=== PATIENT | female | born 1975 | race American Indian/Alaskan Native ===

== ENCOUNTER 2016-09-11 06:20 | Day surgery (SDC) | payer MEDICARE ==
[~2016-09-11 06:20] MED LIST: NACL 0.9% 1000 ML 1,000 ML IV SCH; VANCOMYCIN/NS 1 GM/250 ML 250 ML IV NR
[2016-09-11] MEDS ORDERED: HEPARIN/NS 5000 UNIT/500ML(CATH LAB) 1,000 ML IR ONE (08:16)
[2016-09-11] MEDS ORDERED: XYLOCAINE 2% INFILTRATI ONE (08:16)
[2016-09-11] MEDS ORDERED: HEPARIN 10,000 UNITS/10 ML ONE (08:16)
[2016-09-11] MEDS ORDERED: SUBLIMAZE ONE (08:16)
[2016-09-11] MEDS ORDERED: NACL 0.9% 250ML 0 ML ONE (08:17)
[2016-09-11] MEDS: VERSED ONE ×2 (08:48→08:55)
[2016-09-11] MEDS ORDERED: BENADRYL ONE (08:49)
--- NOTE | 2016-09-11 09:43 | Operative Report ---
Operative Report Operative Report: Date of Procedure: 09/11/2016 Pre-operative Diagnosis: Complications of Dialysis Access Post-operative Diagnosis: Same Procedure(s): 1. Access Left Thigh AV Fistula With 7 [place] Sheath and Venous 2. Left Thigh Fistulogram 3. Angioplasty of Left Thigh AV Fistula with8 x 20 Cutting Balloon And 8 x 80 Balloon 4. Radiologic Supervision with Interpretation Surgeon: Roosevelt Fisher M.D. Secretary Book Keeper: None Anesthesia: Local and IV sedation EBL: Minimal Counts: Correct Complications: None Condition: Stable Findings: Approximately 85% narrowing of a long segment of the fistula at the venous outflow reduced to less than 10% stenosis after intervention. The arterial inflow was widely patent. Specimen: None Indication: The patient is a 41-year-old female with a history of end-stage renal disease currently on hemodialysis through a left thigh AV fistula. She states that she has had difficulty with dialysis secondary to pain and high venous pressures. She was set up for a fistulogram with possible intervention. She was given the risks, benefits, and alternative procedures and consented to the procedure. Description of Procedure: The patient was brought to the tender labor and laid in supine position. After he was adequately sedated her left thigh was prepped and draped in normal sterile fashion. After anesthetizing the skin micropuncture technique was used to access the fistula toward the venous outflow and a 7 [place] sheath was placed by Seldinger technique. A fistulogram was performed with the previously described findings. A 7 x 120 balloon was initially used however there was significant residual stenosis so I decided to upsize to an 8 x 80 a semi- compliant balloon. After angioplasty there was still greater than 50% residual stenosis decided to treat those areas with an 8 x 20 Cutting Balloon. After treating those significantly stenosed areas with the Cutting Balloon was less than 10% residual stenosis. During the balloon inflations contrast was refluxed back into the arterial anastomosis which was widely patent. At this point all balloons and wires were removed for chromic in pursestring fashion was used to close entry site. The patient tolerated the procedure well. All sponge, needle, and estimate counts were correct. The patient was taken to the recovery area in stable condition.
--- NOTE | 2016-09-11 09:46 | Short Stay Summary ---
Short Stay Documentation Date of service: 09/11/16 - History H&P: obtained from office - Allergies and Medications Current Medications: Allergies acetaminophen [From Percocet] Allergy (Verified 06/20/15 11:08) Hives hydromorphone HCl [From Dilaudid] Allergy (Verified 06/20/15 11:08) Hives nifedipine [From Procardia] Allergy (Verified 06/20/15 11:08) Hives oxycodone HCl [From Percocet] Allergy (Verified 06/20/15 11:08) Hives Penicillins Allergy (Verified 06/20/15 11:08) Hives Sulfa (Sulfonamide Antibiotics) Allergy (Verified 06/20/15 11:08) Hives mayonnaise Allergy (Uncoded 06/20/15 11:08) Unknown Home Medications Medication Instructions Recorded Confirmed Last Taken Type Vitamin B Comp and C/FA/Zn Cit 1 tab PO DAILY 08/07/15 09/11/16 09/08/16 History [Dialyvite 800-Zinc 50 mg Tab] 1 Calcitriol [Rocaltrol] 0.5 mg PO BID #60 capsule 10/06/15 Unknown Rx Cyclobenzaprine [Flexeril 10 MG 10 mg PO TID PRN #90 tablet 10/06/15 09/11/16 Rx TAB] 10mg Ondansetron [Zofran Odt] 4 mg PO Q8H PRN #10 tab.rapdis 10/06/15 09/11/16 Rx 4mg Tizanidine HCl [Zanaflex] 4 mg PO QHS #30 capsule 10/06/15 09/11/16 09/09/16 Rx 4mg Zolpidem [Ambien] 10 mg PO QHS PRN #30 tablet 10/06/15 09/11/16 09/09/16 Rx 10mg predniSONE [Deltasone] 20 mg PO QDAY #30 tablet 10/06/15 09/11/16 09/10/16 Rx 20mg ALPRAZolam [Xanax TAB] 1 mg PO DAILY PRN 09/11/16 09/11/16 09/10/16 History 1mg Cinacalcet [Sensipar] 90 mg PO QDAY 01/13/17 01/13/17 01/12/17 History 90mg Active Medications Vancomycin HCl (Vancomycin/Ns 1 Gm/250 Ml) 250 mls @ 167 mls/hr IV PREOP NR PRN Reason: Protocol Stop: 09/11/16 23:00 Last Admin: 09/11/16 08:18 Dose: 167 mls/hr - Brief post op/procedure progress note Date of procedure: 09/11/16 Pre-op diagnosis: Complications of Dialysis Access Post-op diagnosis: same Procedure: 1. Access Left Thigh AV Fistula With 7 [place] Sheath and Venous 2. Left Thigh Fistulogram 3. Angioplasty of Left Thigh AV Fistula with8 x 20 Cutting Balloon And 8 x 80 Balloon 4. Radiologic Supervision with Interpretation Anesthesia: local, other (IV sedation) Surgeon: CAMI SMITH Estimated blood loss: minimal Pathology: none Condition: stable - Disposition Condition at discharge: Good Disposition: DISCHARGED TO HOME OR SELFCARE Short Stay Discharge Plan Activity: no restrictions Wound: open to air, keep clean and dry
[2016-09-11] MEDS ORDERED: NORCO 5/325 ONE (09:57)
[2016-09-11] MEDS ORDERED: NORCO 5/325 PO PRN (10:00)
[2016-09-11] MEDS ORDERED: FLUSH HEPARIN IV ONE (10:08)
[2016-09-11 11:03] VITALS: BP 157/86
== END 2016-09-11 11:15 | disposition home or self-care (01) ==
LOC: OPU 06:20
PROVIDERS: ATTEND Surgery Vascular Surgery
DX: T82.858A Stenosis of other vascular prosthetic devices, implants and grafts, initial encounter (principal); N18.6 End stage renal disease; F41.9 Anxiety disorder, unspecified; Z99.2 Dependence on renal dialysis; Z80.9 Family history of malignant neoplasm, unspecified; Z83.3 Family history of diabetes mellitus; Z82.49 Family history of ischemic heart disease and other diseases of the circulatory system; Y83.2 Surgical operation with anastomosis, bypass or graft as the cause of abnormal reaction of the patient, or of later complication, without mention of misadventure at the time of the procedure
CPT/HCPCS: 36415; 36902; 84132; 96365; C1725; C1769; C1894; J1200; J1642; J1644; J2250; J3010; J3370; J7050; Q9967

== ENCOUNTER 2017-01-25 13:58 | Inpatient (IN) | payer MEDICARE ==
--- NOTE | 2017-01-25 14:49 | XRay Report ---
ROUTINE CHEST, TWO VIEWS: HISTORY: Shortness of breath. Cardiomegaly, pulmonary venous congestion and small bilateral pleural effusions have developed since 10/05/15. No consolidation or pneumothorax. Right [id number] is unchanged terminating in the right ventricle. IMPRESSION: CHF.
[2017-01-25] MEDS ORDERED: NITROSTAT SL PRN (15:55)
--- NOTE | 2017-01-25 16:59 | Emergency Department Report ---
ED General Adult HPI - General Chief complaint: Dyspnea/Respdistress Stated complaint: SOB Time Seen by Provider: 01/25/17 14:40 Source: patient, RN notes reviewed, old records reviewed Mode of arrival: Ambulatory Limitations: No Limitations - History of Present Illness Initial comments: This is a 41-year-old female. She is previously unknown to me. Her medical assistant dermatology is Dr. Ko. Patient has a past medical history of end-stage renal disease, on dialysis Wednesday, , Wednesday. patient was not not dialyzed this past Wednesday. Patient reports given dialysis on . Also has a past medical history of hypertension and lupus. The patient reports that she is not . Impression presents to the ER with shortness of breath and chest pain. The shortness of breath is constant. It worsens when she lays flat. It worsens when she has physical exertion. The chest pain is central and radiates to the left upper extremity. There is no leg pain. There is no leg swelling. No recent trips greater than 4 hours. No recent hospital admissions. The patient was found to have faint crackles on physical examination, with a chest x-ray that suggested congestive heart failure. The patient's private medical assistant dermatology Dr. Ko was contacted, who agreed to arrange dialysis. Of note, there was delay in disposition because the patient was refusing IV peripheral blood draws, and it took a long time to access her port to obtain laboratory studies. -: Gradual Location: chest, left, upper extremity Quality: aching Consistency: intermittent Improves with: rest Worsens with: movement Associated Symptoms: chest pain, loss of appetite, shortness of breath, weakness - Related Data Home Medications Medication Instructions Recorded Confirmed Last Taken Vitamin B Comp and C/FA/Zn Cit 1 tab PO DAILY 08/07/15 09/11/16 09/08/16 [Dialyvite 800-Zinc 50 mg Tab] 1 ALPRAZolam [Xanax TAB] 1 mg PO DAILY PRN 09/11/16 09/11/16 09/10/16 1mg Cinacalcet [Sensipar] 90 mg PO QDAY 09/11/16 09/11/16 09/10/16 90mg Previous Rx's Medication Instructions Recorded Last Taken Type Calcitriol [Rocaltrol] 0.5 mg PO BID #60 capsule 10/06/15 Unknown Rx Cyclobenzaprine [Flexeril 10 MG 10 mg PO TID PRN #90 tablet 10/06/15 09/09/16 Rx TAB] 10mg Ondansetron [Zofran Odt] 4 mg PO Q8H PRN #10 tab.rapdis 10/06/15 09/09/16 Rx 4mg Tizanidine HCl [Zanaflex] 4 mg PO QHS #30 capsule 10/06/15 09/09/16 Rx 4mg Zolpidem [Ambien] 10 mg PO QHS PRN #30 tablet 10/06/15 09/09/16 Rx 10mg predniSONE [Deltasone] 20 mg PO QDAY #30 tablet 10/06/15 09/10/16 Rx 20mg Allergies Allergy/AdvReac Type Severity Reaction Status Date / Time acetaminophen [From Percocet] Allergy Hives Verified 06/20/15 11:08 hydromorphone HCl Allergy Hives Verified 06/20/15 11:08 [From Dilaudid] nifedipine [From Procardia] Allergy Hives Verified 06/20/15 11:08 oxycodone HCl [From Percocet] Allergy Hives Verified 06/20/15 11:08 Penicillins Allergy Hives Verified 06/20/15 11:08 Sulfa (Sulfonamide Allergy Hives Verified 06/20/15 11:08 Antibiotics) mayonnaise Allergy Unknown Uncoded 06/20/15 11:08 ED Review of Systems ROS: Stated complaint: SOB Other details as noted in HPI Constitutional: malaise. 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 - Surgical History Past Surgical History?: Yes Additional Surgical History: shunts, ports csection x 2 - Social History Smoking Status: Never Smoker Substance Use Type: Prescribed - Medications Home Medications: Home Medications Medication Instructions Recorded Confirmed Last Taken Type Vitamin B Comp and C/FA/Zn Cit 1 tab PO DAILY 08/07/15 09/11/16 09/08/16 History [Dialyvite 800-Zinc 50 mg Tab] 1 Calcitriol [Rocaltrol] 0.5 mg PO BID #60 capsule 10/06/15 Unknown Rx Cyclobenzaprine [Flexeril 10 MG 10 mg PO TID PRN #90 tablet 10/06/15 09/11/16 Rx TAB] 10mg Ondansetron [Zofran Odt] 4 mg PO Q8H PRN #10 tab.rapdis 10/06/15 09/11/16 Rx 4mg Tizanidine HCl [Zanaflex] 4 mg PO QHS #30 capsule 10/06/15 09/11/16 09/09/16 Rx 4mg Zolpidem [Ambien] 10 mg PO QHS PRN #30 tablet 10/06/15 09/11/16 09/09/16 Rx 10mg predniSONE [Deltasone] 20 mg PO QDAY #30 tablet 10/06/15 09/11/16 09/10/16 Rx 20mg ALPRAZolam [Xanax TAB] 1 mg PO DAILY PRN 09/11/16 09/11/16 09/10/16 History 1mg Cinacalcet [Sensipar] 90 mg PO QDAY 09/11/16 09/11/16 09/10/16 History 90mg ED Physical Exam - General Limitations: No Limitations General appearance: alert, in no apparent distress - Head Head exam: Present: atraumatic, normocephalic - Eye Eye exam: Present: normal appearance, EOMI. Absent: nystagmus - ENT ENT exam: Present: normal exam, normal orophraynx, mucous membranes moist, normal external ear exam - Neck Neck exam: Present: normal inspection, full ROM. Absent: tenderness, meningismus - Respiratory Respiratory exam: Present: rhonchi - Cardiovascular Cardiovascular Exam: Present: normal rhythm, tachycardia, normal heart sounds. Absent: systolic murmur, diastolic murmur, rubs, gallop - GI/Abdominal GI/Abdominal exam: Present: soft, normal bowel sounds. Absent: distended, tenderness, guarding, rebound, rigid, pulsatile mass - Extremities Exam Extremities exam: Present: normal inspection, full ROM, normal capillary refill , other (there is a left lower extremity graft, appropriate thrill. No redness , pus or streaking noted.). Absent: pedal edema, joint swelling, calf tenderness - Back Exam Back exam: Present: normal inspection, full ROM. Absent: tenderness, CVA tenderness (R), CVA tenderness (L), muscle spasm, paraspinal tenderness, vertebral tenderness - Neurological Exam Neurological exam: Present: alert, oriented X3, normal gait, other (Extraocular movements intact. Tongue midline. No facial droop. Facial sensation intact to light touch in the V1, V2, V3 distribution bilaterally. 5 and 5 strength in 4 extremities.. Sensation is intact to light touch in 4 extremities.). Absent : motor sensory deficit - Psychiatric Psychiatric exam: Present: normal affect, normal mood - Skin Skin exam: Present: warm, dry, intact, normal color. Absent: rash ED Course Vital Signs 01/25/17 01/25/17 01/25/17 14:07 17:16 17:54 Temperature 98.2 F Pulse Rate 108 H 86 Respiratory 22 Rate Blood Pressure 189/113 Blood Pressure [Right] O2 Sat by Pulse 100 98 Oximetry 01/25/17 17:58 Temperature 98 F Pulse Rate 97 H Respiratory 22 Rate Blood Pressure Blood Pressure 159/92 [Right] O2 Sat by Pulse 98 Oximetry - Reevaluation(s) Reevaluation #1: 01/25/17 17:52 Dr Shanks accepts patient ED Medical Decision Making - Lab Data Result diagrams: 01/25/17 17:14 01/25/17 16:45 Vital Signs 01/25/17 14:07 Temperature 98.2 F Pulse Rate 108 H Respiratory 22 Rate Blood Pressure 189/113 O2 Sat by Pulse 100 Oximetry - EKG Data 01/25/17 16:58 sinus tachycardia, 105 bpm, QTC 481 ms, poor R wave progression noted, nonspecific T-wave abnormality, not morphologically consistent with STEMI , appears unchanged when compared to prior EKG from 2016. - Radiology Data Radiology results: report reviewed, image reviewed X-ray of the chest demonstrates cardiomegaly, congestive heart failure, pleural effusions - Medical Decision Making Differential diagnosis: Acute coronary syndrome, congestive heart failure, fluid overload, ACS Assessment and plan: 41-year-old female with chest pain, shortness of breath, x- ray of the chest demonstrating CHF, most likely CHF, requiring urgent dialysis. I doubt pulmonary embolus, patient does not have any classic risk factors, with the exception of lupus, however I find to be low risk by well's criteria. Critical care attestation.: If time is entered above; I have spent that time in minutes in the direct care of this critically ill patient, excluding procedure time. ED Disposition Clinical Impression: End stage renal failure on dialysis, Chest pain at rest Disposition: OP ADMITTED IP TO THIS HOSP Is pt being admited?: Yes Does the pt Need Aspirin: Yes Condition: Good Instructions: Chest Pain (ED) Referrals: PRIMARY CARE, [Primary Care Provider] - 3-5 Days
[2017-01-25 17:21] LABS: Anion Gap 25 mmol/L; Blood Urea Nitrogen 32 mg/dL (7-17); Calcium 8.5 mg/dL (8.4-10.2); Carbon Dioxide 21 mmol/L (22-30); Chloride 94.8 mmol/L (98-107); Glucose 98 mg/dL (65-100); Potassium 3.8 mmol/L (3.6-5.0); Sodium 137 mmol/L (137-145)
[2017-01-25 17:29] LABS: Hematocrit 26.9 % (30.3-42.9); Hemoglobin 8.5 gm/dl (10.1-14.3); Mean Corpuscular HGB Conc 32 % (30-34); Mean Corpuscular Hemoglobin 29 pg (28-32); Mean Corpuscular Volume 92 fl (79-97); Red Blood Count 2.92 M/mm3 (3.65-5.03); White Blood Count 3.9 K/mm3 (4.5-11.0)
[2017-01-25 17:35] LABS: INR 1.11 (0.87-1.13)
[2017-01-25 17:39] LABS: Cholesterol 102 mg/dL (50-199); HDL Cholesterol 40 mg/dL (40-59); LDL Cholesterol,Direct 42 mg/dL (50-130); Triglycerides 103 mg/dL (2-149)
[2017-01-25] MEDS ORDERED: NACL 0.9% 100 ML IV PRN (18:06)
--- NOTE | 2017-01-25 18:06 | Event Note ---
I was called in by the ER physician for a patient presenting with shortness of breath elevated proBNP Patient missed her dialysis treatment She is clinically stable otherwise Will order for dialysis
--- NOTE | 2017-01-25 18:15 | Admit Criteria Form ---
Admission Criteria Documentation: RENAL FAILURE, CHRONIC Clinical Indications for Admission to Inpatient Care (Place 'X' for any and all applicable criteria): Admission is indicated for ANY ONE of the following (1)(2)(3)(4)(5): [X ]I. Inpatient admission required rather than observation care (Use Renal Failure, Chronic: Observation Care Criteria as appropriate) because of ANY ONE of the following: [ ]a) Volume overload or uremic symptoms (eg, clinically significant pulmonary edema, hypertension, pericarditis, acidosis) too severe for, or not responsive (eg, for over 24 hours) to emergency department or observation care dialysis or treatment regimen (11) [ ]b) Hemodynamic instability that is severe or persistent [X ]c) Respiratory distress that is severe or persistent (11) [ ]d) Clinically significant electrolyte abnormality that requires inpatient care (eg,hyperkalemia with severe ECG findings)[B] [ ]e) Supplement O2 or respiratory therapy for over 24hrs that is performable only in acute inpatient setting [ ]f) Continuous IV infusion of anticoagulation, platelet inhibitor, vasoactive, or Antiarrhythmic medication (15), [ ]g) Pulmonary artery catheter monitoring [ ]h) Temporary pacemaker placement [ ]i) Emergent pericardiocentesis [X ]j) Other condition, treatment or monitoring requiring inpatient admission [ ]II. Unexplained syncope [A] [ ]III. Recurrent seizures [ ]IV. Severe infections not treatable in outpatient setting (eg, peritonitis)(9 ) [ ]V. Cardiac arrhythmias of immediate concern [ ]. Encephalopathy [ ]VII.Bleeding abnormalities (eg, platelet dysfunction) with active (eg, gastrointestinal) bleeding Extended stay beyond goal length of stay may be needed for (3)(4)(35)(36): [ ]a) Continuing uremic complications [ ]b) Comorbidities or complications The original [employer] content created by [employer] has been revised. The portions of the content which have been revised are identified through the use of italic text or in bold, and [facility] has neither reviewed nor approved the modified material. All other unmodified content is copyright [employer]. Please see references footnoted in the original [facility] edition 2016 Admission Criteria Met: Yes
--- NOTE | 2017-01-25 18:30 | History and Physical Report ---
History of Present Illness Date of examination: 01/25/17 Chief complaint: SOB History of present illness: 41-year-old -[place] female with past medical history significant for lupus, ESRD on hemodialysis, CHF, hypertension presented to the emergency department complaining of shortness of breath for the last 1 week. Patient said her dialysis was on Wednesday and after dialysis she gained 1 pound. Patient has shortness of breath at rest. Patient is complaining left substernal chest pain for the last 2 days, 10 out of 10 in intensity, sharp, with radiation to the left arm, associated with diaphoresis, no alleviating factor, worsened with exertion. Patient has previous history of LA. Vision is also complaining back pain, multiple joint pain which attributed to lupus. REVIEW OF SYSTEMS: GENERAL: no weight change, no fatigue, no fever HEAD: no head ache EYES: no blurry vision, no acute visual loss EARS: no hearing loss, no discharge, no earache NOSE: no stuffiness, no sneezing, no discharge MOUTH, THROAT AND NECK: no bleeding gums, no sore throat, no swollen neck CARDIAC: no palpitations, + dyspnea on exertion, + orthopnea, + PND, no edema, + chest pain RESPIRATORY: + shortness of breath, no wheeze, + cough, no sputum, no hemoptysis , no asthma GI: no decreased appetite, no nausea, no vomiting, no dysphagia, no diarrhea, no constipation, no abdominal pain URINARY: no change in frequency, no urgency, no polyuria, no hematuria, no incontinence MUSCULOSKELETAL: no muscle weakness, + multiple pain, no joint stiffness NEUROLOGIC: no loss of sensation/numbness, no tingling, no tremors, no weakness/ paralysis HEMATOLOGIC: no anemia, no easy bruising SKIN: no rashes ENDOCRINE: no heat/cold intolerance, no polyuria, no polydipsia, no thyroid problems. PSYCHIATRIC: no anxiety, no depression, no suicidal ideations. Past History Past Medical History: arthritis, CAD, dialysis, heart failure, renal failure, other (SLE) Past Surgical History: , Other (port cath, PD catheter) Social history: full code. denies: smoking, alcohol abuse, prescription drug abuse, IV drug use Family history: CAD, hypertension Medications and Allergies Allergies Allergy/AdvReac Type Severity Reaction Status Date / Time acetaminophen [From Percocet] Allergy Hives Verified 06/20/15 11:08 hydromorphone HCl Allergy Hives Verified 06/20/15 11:08 [From Dilaudid] nifedipine [From Procardia] Allergy Hives Verified 06/20/15 11:08 oxycodone HCl [From Percocet] Allergy Hives Verified 06/20/15 11:08 Penicillins Allergy Hives Verified 06/20/15 11:08 Sulfa (Sulfonamide Allergy Hives Verified 06/20/15 11:08 Antibiotics) mayonnaise Allergy Unknown Uncoded 06/20/15 11:08 Home Medications Medication Instructions Recorded Confirmed Last Taken Type Vitamin B Comp and C/FA/Zn Cit 1 tab PO DAILY 08/07/15 09/11/16 09/08/16 History [Dialyvite 800-Zinc 50 mg Tab] 1 Calcitriol [Rocaltrol] 0.5 mg PO BID #60 capsule 10/06/15 Unknown Rx Cyclobenzaprine [Flexeril 10 MG 10 mg PO TID PRN #90 tablet 10/06/15 09/11/16 Rx TAB] 10mg Ondansetron [Zofran Odt] 4 mg PO Q8H PRN #10 tab.rapdis 10/06/15 09/11/16 Rx 4mg Tizanidine HCl [Zanaflex] 4 mg PO QHS #30 capsule 10/06/15 09/11/16 09/09/16 Rx 4mg Zolpidem [Ambien] 10 mg PO QHS PRN #30 tablet 10/06/15 09/11/16 09/09/16 Rx 10mg predniSONE [Deltasone] 20 mg PO QDAY #30 tablet 10/06/15 09/11/16 09/10/16 Rx 20mg ALPRAZolam [Xanax TAB] 1 mg PO DAILY PRN 09/11/16 09/11/16 09/10/16 History 1mg Cinacalcet [Sensipar] 90 mg PO QDAY 09/11/16 09/11/16 09/10/16 History 90mg Active Meds: Active Medications Sodium Chloride (Nacl 0.9%) 100 mls @ 999 mls/hr IV ARTUR PRN PRN Reason: Hypotension Nitroglycerin (Nitrostat) 0.4 mg SL .Q5MIN PRN PRN Reason: Chest Pain Last Admin: 01/25/17 17:16 Dose: 0.4 mg Exam - Physical Exam Narrative exam: Not in cardiopulmonary distress. The patient appeared well nourished and normally developed. Vital signs as documented. Head exam is unremarkable. No scleral icterus . Neck is without jugular venous distension, thyromegaly, or carotid bruits. Lungs Basilan rales. Cardiac exam reveals regular rate and Rhythm. First and second heart sounds normal. No murmurs, rubs or gallops. Abdominal exam reveals normal bowel sounds, no masses, no organomegaly and no aortic enlargement. Extremities are nonedematous and both femoral and pedal pulses are normal. SCENIC ARTIST: Alert and oriented 3. No focal weakness. - Constitutional Vitals: Temp Pulse Resp BP Pulse Ox 98 F 97 H 22 159/92 98 01/25/17 17:58 01/25/17 17:58 01/25/17 17:58 01/25/17 17:58 01/25/17 17:58 Results - Labs CBC & Chem 7: 01/25/17 17:14 01/25/17 16:45 Labs: Laboratory Last Values WBC 3.9 K/mm3 (4.5-11.0) L 01/25/17 17:14 RBC 2.92 M/mm3 (3.65-5.03) L 01/25/17 17:14 Hgb 8.5 gm/dl (10.1-14.3) L 01/25/17 17:14 Hct 26.9 % (30.3-42.9) L 01/25/17 17:14 MCV 92 fl (79-97) 01/25/17 17:14 MCH 29 pg (28-32) 01/25/17 17:14 MCHC 32 % (30-34) 01/25/17 17:14 RDW 17.0 % (13.2-15.2) H 01/25/17 17:14 Seg Neutrophils % Loan Processing Supervisor 01/25/17 17:14 PT 14.2 Sec. (12.2-14.9) 01/25/17 17:14 INR 1.11 (0.87-1.13) 01/25/17 17:14 Sodium 137 mmol/L (137-145) 01/25/17 16:45 Potassium 3.8 mmol/L (3.6-5.0) 01/25/17 16:45 Chloride 94.8 mmol/L (98-107) L 01/25/17 16:45 Carbon Dioxide 21 mmol/L (22-30) L 01/25/17 16:45 Anion Gap 25 mmol/L 01/25/17 16:45 BUN 32 mg/dL (7-17) H 01/25/17 16:45 Creatinine 10.3 mg/dL (0.7-1.2) H 01/25/17 16:45 Estimated GFR 5 ml/min 01/25/17 16:45 BUN/Creatinine Ratio 3.10 % 01/25/17 16:45 Glucose 98 mg/dL (65-100) 01/25/17 16:45 Calcium 8.5 mg/dL (8.4-10.2) 01/25/17 16:45 Troponin T 0.083 ng/mL (0.00-0.029) H 01/25/17 16:45 NT-Pro-B Natriuret Pep > 42604 pg/mL (0-450) H 01/25/17 16:45 Triglycerides 103 mg/dL (2-149) 01/25/17 16:45 Cholesterol 102 mg/dL (50-199) 01/25/17 16:45 LDL Cholesterol Direct 42 mg/dL (50-130) L 01/25/17 16:45 HDL Cholesterol 40 mg/dL (40-59) 01/25/17 16:45 Cholesterol/HDL Ratio 2.55 % 01/25/17 16:45 HCG, Quant < 2 mIU/mL (0-4) 01/25/17 16:45 - Imaging and Cardiology EKG: image reviewed (t-wave inversion in leads 1 and AVF) Chest x-ray: image reviewed (pulmonary congestion suggestive of CHF) Assessment and Plan Assessment and plan: Fluid overload secondary to CHF exacerbation/ESRD - Emergent hemodialysis to be done - Nephrology consulted - Echo Chest pain - Troponin is elevated in the setting of ESRD - Serial EKGs and cardiac enzymes - T wave inversion in leads 1 and aVF, we'll consult cardiology Hypertensive urgency - Hydralazine - We will monitor after HD SLE - continue with prednsolne DVT prophylaxis - heparin Disposition - Admit to telemetry Advance Directives: Yes VTE prophylaxis?: Chemical Plan of care discussed with patient/family: Yes
[2017-01-25] MEDS ORDERED: SODIUM CHLORIDE FLUSH SYRINGE 10 ML IV PRN (18:32)
[2017-01-25] MEDS ORDERED: APRESOLINE IV ONE (18:32)
[2017-01-25] MEDS ORDERED: XANAX PO PRN (18:34)
[2017-01-25] MEDS ORDERED: ZOFRAN ODT PO PRN (18:34)
[2017-01-25] MEDS ORDERED: AMBIEN PO PRN (18:34)
[2017-01-25] MEDS ORDERED: FLEXERIL PO PRN (18:34)
[2017-01-25 19:48] LABS: Basophils % (Manual) 0 % (0.0-1.8); Blastocytes % (Manual) 0 %
[2017-01-25 19:49] LABS: Anisocytosis 1+; Elliptocytes Few
[2017-01-25 19:50] LABS: Acanthocytes Rare; Diff Status Complete; Platelet Estimate Appears Decreased
[2017-01-25 19:55] LABS: Platelet Count 76 K/mm3 (140-440)
[2017-01-25] MEDS ORDERED: NACL 0.9 (PRIMING MACHINE ONLY DIALYSIS) MC ONE (21:09)
[2017-01-25] MEDS: MORPHINE IV PRN (21:13)
[2017-01-25] MEDS: BENADRYL IV SCH (21:14)
[2017-01-25] MEDS ORDERED: ZANAFLEX PO PRN (22:00)
[2017-01-25] MEDS ORDERED: ROCALTROL PO SCH (22:00)
[2017-01-25] MEDS: PEPCID PO SCH (23:42)
[2017-01-25] MEDS: APRESOLINE PO SCH (23:42)
[2017-01-25] MEDS: HEPARIN SUB-Q SCH (23:43)
[2017-01-25] MEDS: COLACE PO SCH (23:43)
[2017-01-25] MEDS: DELTASONE PO SCH (23:43)
[2017-01-26] MEDS: MORPHINE IV PRN ×3 (00:53→21:26)
[2017-01-26] MEDS: BENADRYL IV SCH ×4 (00:54→21:25)
[2017-01-26 01:31] LABS: Creatine Kinase MB 1.5 ng/mL (0.0-4.0)
[2017-01-26] MEDS: APRESOLINE PO SCH ×3 (05:20→21:25)
[2017-01-26] MEDS: HEPARIN SUB-Q SCH ×3 (05:21→21:34)
[2017-01-26] MEDS: DELTASONE PO SCH (09:39)
[2017-01-26] MEDS: SENSIPAR PO SCH (09:39)
[2017-01-26] MEDS: ROCALTROL PO SCH ×3 (09:39→21:27)
[2017-01-26] MEDS: COLACE PO SCH ×2 (09:39→21:25)
[2017-01-26] MEDS: BABY ASPIRIN PO SCH (09:39)
[2017-01-26] MEDS: PEPCID PO SCH ×2 (09:39→21:25)
[2017-01-26] MEDS ORDERED: ROBITUSSIN DM PO PRN (11:30)
[2017-01-26] MEDS: PHOSLO PO SCH ×2 (12:18→18:17)
--- NOTE | 2017-01-26 13:04 | Consultation ---
History of Present Illness Consult date: 01/26/17 Consult reason: chest pain History of present illness: This is a 41yr old patient with end stage renal disease, systemic lupus, hypertension who presented with complaints of chest pain and shortness of breath. Chest x-ray reports cardiomegaly with pulmonary venous congestion. Patient denies missed dialysis. Latest cardiac workup done 2 years ago shows a normal myocardial perfusion thallium stress test, EF 60%. ECG shows a sinus rhythm with nonspecific twave abnormalities. Past History Past Medical History: dialysis, ESRD, renal failure, other (SLE) Social history: full code. denies: smoking, alcohol abuse, prescription drug abuse, IV drug use Family history: CAD, hypertension Medications and Allergies Allergies Allergy/AdvReac Type Severity Reaction Status Date / Time acetaminophen [From Percocet] Allergy Hives Verified 06/20/15 11:08 hydromorphone HCl Allergy Hives Verified 06/20/15 11:08 [From Dilaudid] nifedipine [From Procardia] Allergy Hives Verified 06/20/15 11:08 oxycodone HCl [From Percocet] Allergy Hives Verified 06/20/15 11:08 Penicillins Allergy Hives Verified 06/20/15 11:08 Sulfa (Sulfonamide Allergy Hives Verified 06/20/15 11:08 Antibiotics) mayonnaise Allergy Unknown Uncoded 06/20/15 11:08 Home Medications Medication Instructions Recorded Confirmed Last Taken Type Vitamin B Comp and C/FA/Zn Cit 1 tab PO DAILY 08/07/15 01/26/17 1 Day Ago History [Dialyvite 800-Zinc 50 mg Tab] Calcitriol [Rocaltrol] 0.5 mg PO BID #60 capsule 10/06/15 01/26/17 1 Day Ago Rx Cyclobenzaprine [Flexeril 10 MG 10 mg PO TID PRN #90 tablet 10/06/15 01/26/17 1 Day Ago Rx TAB] Ondansetron [Zofran Odt] 4 mg PO Q8H PRN #10 tab.rapdis 10/06/15 01/26/17 1 Day Ago Rx Tizanidine HCl [Zanaflex] 4 mg PO QHS #30 capsule 10/06/15 01/26/17 1 Day Ago Rx Zolpidem [Ambien] 10 mg PO QHS PRN #30 tablet 10/06/15 01/26/17 1 Day Ago Rx predniSONE [Deltasone] 20 mg PO QDAY #30 tablet 10/06/15 01/26/17 1 Day Ago Rx ALPRAZolam [Xanax TAB] 1 mg PO DAILY PRN 09/11/16 01/26/17 1 Day Ago History Cinacalcet [Sensipar] 90 mg PO QDAY 09/11/16 01/26/17 1 Day Ago History Active Meds: Active Medications Alprazolam (Xanax) 1 mg PO DAILY PRN PRN Reason: Anxiety Aspirin (Baby Aspirin) 81 mg PO QDAY [facility] Last Admin: 01/26/17 09:39 Dose: 81 mg Calcitriol (Rocaltrol) 0.5 mcg PO BID [facility] Last Admin: 01/26/17 09:42 Dose: Not Given Calcium Acetate (Phoslo) 667 mg PO TIDWM [facility] Last Admin: 01/26/17 12:18 Dose: 667 mg Cinacalcet (Sensipar) 90 mg PO QDAY [facility] Last Admin: 01/26/17 09:39 Dose: 90 mg Cyclobenzaprine HCl (Flexeril) 10 mg PO TID PRN PRN Reason: Muscle Spasm Diphenhydramine HCl (Benadryl) 25 mg IV Q6H [facility] Last Admin: 01/26/17 12:20 Dose: 25 mg Docusate Sodium (Colace) 100 mg PO BID [facility] Last Admin: 01/26/17 09:39 Dose: 100 mg Famotidine (Pepcid) 20 mg PO BID [facility] Last Admin: 01/26/17 09:39 Dose: 20 mg Guaifenesin (Robitussin Dm) 10 ml PO Q4H PRN PRN Reason: Cough Heparin Sodium (Porcine) (Heparin) 5,000 unit SUB-Q Q8HR [facility] Last Admin: 01/26/17 05:21 Dose: Not Given Hydralazine HCl (Apresoline) 50 mg PO Q8HR [facility] Last Admin: 01/26/17 05:20 Dose: 50 mg Sodium Chloride (Nacl 0.9%) 100 mls @ 999 mls/hr IV ARTUR PRN PRN Reason: Hypotension Morphine Sulfate (Morphine) 2 mg IV Q4H PRN PRN Reason: Pain, Moderate (4-6) Last Admin: 01/26/17 12:20 Dose: 2 mg Nitroglycerin (Nitrostat) 0.4 mg SL .Q5MIN PRN PRN Reason: Chest Pain Last Admin: 01/25/17 17:16 Dose: 0.4 mg Ondansetron HCl (Zofran Odt) 4 mg PO Q8H PRN PRN Reason: Nausea Prednisone (Deltasone) 20 mg PO QDAY [facility] Last Admin: 01/26/17 09:39 Dose: 20 mg Sodium Chloride (Sodium Chloride Flush Syringe 10 Ml) 10 ml IV PRN PRN PRN Reason: LINE FLUSH Tizanidine HCl (Zanaflex) 4 mg PO HS PRN PRN Reason: Muscle Spasm Zolpidem Tartrate (Ambien) 10 mg PO QHS PRN PRN Reason: Insomnia Physical Examination Vital Signs Temp Pulse Resp BP Pulse Ox 98.2 F 108 H 22 189/113 100 01/25/17 14:07 01/25/17 14:07 01/25/17 14:07 01/25/17 14:07 01/25/17 14:07 General appearance: no acute distress HEENT: Positive: PERRL Neck: Positive: trachea midline Cardiac: Positive: Reg Rate and Rhythm Results 01/25/17 17:14 01/25/17 16:45 Cardiac Enzymes 01/26/17 Range/Units 00:27 CK-MB (CK-2) 1.5 (0.0-4.0) ng/mL Assessment and Plan Volume overload Chest pain ESRD on HD Hx of systemic lupus Hypertension -uncontrolled Anemia Recommendations: Optimal BP control. Dialysis for fluid removal. Echocardiogram for LVEF assessment. Pre-discharge presantine thallium stress test for further cardiac evaluation.
[2017-01-26 13:29] LABS: BUN/Creatinine Ratio 2.76; Calcium 8.3 mg/dL (8.4-10.2); Chloride 96.1 mmol/L (98-107); Potassium 3.8 mmol/L (3.6-5.0)
--- NOTE | 2017-01-26 15:10 | Progress Note ---
Assessment and Plan Assessment and plan: Fluid overload secondary to CHF exacerbation/ESRD - Nephrology consult appreciated - She was dialyzed yesterday, she may need another dialysis today - Echo pending Chest pain - Troponin is elevated in the setting of ESRD - Cardiology consult appreciated - Patient will have stress test tomorrow Hypertensive urgency - Hydralazine PRN and resume other home medications SLE - continue with prednsolne DVT prophylaxis - heparin Disposition - Will discharge likely tomorrow id stress test is negative. History Interval history: Patient was seen and evaluated this morning, patient said the chest pain and shortness of breath is easing up. Hospitalist Physical - Physical exam Narrative exam: Not in cardiopulmonary distress. The patient appeared well nourished and normally developed. Vital signs as documented. Head exam is unremarkable. No scleral icterus . Neck is without jugular venous distension, thyromegaly, or carotid bruits. Lungs clear to auscultation bilaterally. Cardiac exam reveals regular rate and Rhythm. First and second heart sounds normal. No murmurs, rubs or gallops. Abdominal exam reveals normal bowel sounds, no masses, no organomegaly and no aortic enlargement. Extremities are nonedematous and both femoral and pedal pulses are normal. 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 No focal weakness. - Constitutional Vitals: Temp Pulse Resp BP Pulse Ox 98.2 F 104 H 20 160/88 98 01/26/17 13:00 01/26/17 13:00 01/26/17 13:00 01/26/17 13:00 01/26/17 08:50 General appearance: Present: no acute distress Results - Labs CBC & Chem 7: 01/25/17 17:14 01/26/17 13:04 Labs: Laboratory Last Values WBC 3.9 K/mm3 (4.5-11.0) L 01/25/17 17:14 RBC 2.92 M/mm3 (3.65-5.03) L 01/25/17 17:14 Hgb 8.5 gm/dl (10.1-14.3) L 01/25/17 17:14 Hct 26.9 % (30.3-42.9) L 01/25/17 17:14 MCV 92 fl (79-97) 01/25/17 17:14 MCH 29 pg (28-32) 01/25/17 17:14 MCHC 32 % (30-34) 01/25/17 17:14 RDW 17.0 % (13.2-15.2) H 01/25/17 17:14 Plt Count 76 K/mm3 (140-440) L 01/25/17 17:14 Add Manual Diff Complete 01/25/17 17:14 Total Counted 100 01/25/17 17:14 Seg Neutrophils % Logging Rafter Laborer 01/25/17 17:14 Seg Neuts % (Manual) 56.0 % (40.0-70.0) 01/25/17 17:14 Band Neutrophils % 1.0 % 01/25/17 17:14 Lymphocytes % (Manual) 39.0 % (13.4-35.0) H 01/25/17 17:14 Reactive Lymphs % (Man) 0 % 01/25/17 17:14 Monocytes % (Manual) 2.0 % (0.0-7.3) 01/25/17 17:14 Eosinophils % (Manual) 1.0 % (0.0-4.3) 01/25/17 17:14 Basophils % (Manual) 0 % (0.0-1.8) 01/25/17 17:14 Metamyelocytes % 1.0 % 01/25/17 17:14 Myelocytes % 0 % 01/25/17 17:14 Promyelocytes % 0 % 01/25/17 17:14 Blast Cells % 0 % 01/25/17 17:14 Nucleated RBC % Not Reportable 01/25/17 17:14 Seg Neutrophils # Man 2.2 K/mm3 (1.8-7.7) 01/25/17 17:14 Band Neutrophils # 0.0 K/mm3 01/25/17 17:14 Lymphocytes # (Manual) 1.5 K/mm3 (1.2-5.4) 01/25/17 17:14 Abs React Lymphs (Man) 0.0 K/mm3 01/25/17 17:14 Monocytes # (Manual) 0.1 K/mm3 (0.0-0.8) 01/25/17 17:14 Eosinophils # (Manual) 0.0 K/mm3 (0.0-0.4) 01/25/17 17:14 Basophils # (Manual) 0.0 K/mm3 (0.0-0.1) 01/25/17 17:14 Metamyelocytes # 0.0 K/mm3 01/25/17 17:14 Myelocytes # 0.0 K/mm3 01/25/17 17:14 Promyelocytes # 0.0 K/mm3 01/25/17 17:14 Blast Cells # 0.0 K/mm3 01/25/17 17:14 WBC Morphology Not Reportable 01/25/17 17:14 Hypersegmented Neuts Not Reportable 01/25/17 17:14 Hyposegmented Neuts Not Reportable 01/25/17 17:14 Hypogranular Neuts Not Reportable 01/25/17 17:14 Smudge Cells Not Reportable 01/25/17 17:14 Toxic Granulation Not Reportable 01/25/17 17:14 Toxic Vacuolation Not Reportable 01/25/17 17:14 Dohle Bodies Not Reportable 01/25/17 17:14 Pelger-Huet Anomaly Not Reportable 01/25/17 17:14 Agueda Rods Not Reportable 01/25/17 17:14 Platelet Estimate Appears decreased 01/25/17 17:14 Clumped Platelets Not Reportable 01/25/17 17:14 Plt Clumps, EDTA Not Reportable 01/25/17 17:14 Large Platelets Not Reportable 01/25/17 17:14 Giant Platelets Not Reportable 01/25/17 17:14 Platelet Satelliting Not Reportable 01/25/17 17:14 Plt Morphology Comment Not Reportable 01/25/17 17:14 RBC Morphology Not Reportable 01/25/17 17:14 Dimorphic RBCs Not Reportable 01/25/17 17:14 Polychromasia Not Reportable 01/25/17 17:14 Hypochromasia Not Reportable 01/25/17 17:14 Poikilocytosis Not Reportable 01/25/17 17:14 Anisocytosis 1+ 01/25/17 17:14 Microcytosis Not Reportable 01/25/17 17:14 Macrocytosis Not Reportable 01/25/17 17:14 Spherocytes Not Reportable 01/25/17 17:14 Pappenheimer Bodies Not Reportable 01/25/17 17:14 Sickle Cells Not Reportable 01/25/17 17:14 Target Cells Not Reportable 01/25/17 17:14 Tear Drop Cells Not Reportable 01/25/17 17:14 Ovalocytes Not Reportable 01/25/17 17:14 Helmet Cells Not Reportable 01/25/17 17:14 Avalos-Delia Bodies Not Reportable 01/25/17 17:14 Cutler Rings Not Reportable 01/25/17 17:14 Jhoana Cells Not Reportable 01/25/17 17:14 Bite Cells Not Reportable 01/25/17 17:14 Crenated Cell Not Reportable 01/25/17 17:14 Elliptocytes Few 01/25/17 17:14 Acanthocytes (Spur) Rare 01/25/17 17:14 Rouleaux Not Reportable 01/25/17 17:14 Hemoglobin C Crystals Not Reportable 01/25/17 17:14 Schistocytes Not Reportable 01/25/17 17:14 Malaria parasites Not Reportable 01/25/17 17:14 Jeronimo Bodies Not Reportable 01/25/17 17:14 Hem Pathologist Commnt No 01/25/17 17:14 PT 14.2 Sec. (12.2-14.9) 01/25/17 17:14 INR 1.11 (0.87-1.13) 01/25/17 17:14 Sodium 137 mmol/L (137-145) 01/26/17 13:04 Potassium 3.8 mmol/L (3.6-5.0) 01/26/17 13:04 Chloride 96.1 mmol/L (98-107) L 01/26/17 13:04 Carbon Dioxide 25 mmol/L (22-30) 01/26/17 13:04 Anion Gap 20 mmol/L 01/26/17 13:04 BUN 18 mg/dL (7-17) H 01/26/17 13:04 Creatinine 6.5 mg/dL (0.7-1.2) H 01/26/17 13:04 Estimated GFR 8 ml/min 01/26/17 13:04 BUN/Creatinine Ratio 2.76 % 01/26/17 13:04 Glucose 142 mg/dL (65-100) H 01/26/17 13:04 Calcium 8.3 mg/dL (8.4-10.2) L 01/26/17 13:04 Total Creatine Kinase 82 units/L (30-135) 01/26/17 00:27 CK-MB (CK-2) 1.5 ng/mL (0.0-4.0) 01/26/17 00:27 CK-MB (CK-2) Rel Index 1.8 (0-4) 01/26/17 00:27 Troponin T 0.082 ng/mL (0.00-0.029) H 01/26/17 00:27 NT-Pro-B Natriuret Pep > 01277 pg/mL (0-450) H 01/25/17 16:45 Triglycerides 103 mg/dL (2-149) 01/25/17 16:45 Cholesterol 102 mg/dL (50-199) 01/25/17 16:45 LDL Cholesterol Direct 42 mg/dL (50-130) L 01/25/17 16:45 HDL Cholesterol 40 mg/dL (40-59) 01/25/17 16:45 Cholesterol/HDL Ratio 2.55 % 01/25/17 16:45 HCG, Quant < 2 mIU/mL (0-4) 01/25/17 16:45
--- NOTE | 2017-01-26 15:42 | Consultation ---
History of Present Illness - Reason for Consult Consult date: 01/26/17 - History of Present Illness consult done. pt was seen and examined Past History Past Medical History: dialysis, ESRD, renal failure, other (SLE) Past Surgical History: , Other (port cath, PD catheter) Social history: full code. denies: smoking, alcohol abuse, prescription drug abuse, IV drug use Family history: CAD, hypertension Medications and Allergies Allergies Allergy/AdvReac Type Severity Reaction Status Date / Time acetaminophen [From Percocet] Allergy Hives Verified 06/20/15 11:08 hydromorphone HCl Allergy Hives Verified 06/20/15 11:08 [From Dilaudid] nifedipine [From Procardia] Allergy Hives Verified 06/20/15 11:08 oxycodone HCl [From Percocet] Allergy Hives Verified 06/20/15 11:08 Penicillins Allergy Hives Verified 06/20/15 11:08 Sulfa (Sulfonamide Allergy Hives Verified 06/20/15 11:08 Antibiotics) mayonnaise Allergy Unknown Uncoded 06/20/15 11:08 Home Medications Medication Instructions Recorded Confirmed Last Taken Type Vitamin B Comp and C/FA/Zn Cit 1 tab PO DAILY 08/07/15 01/26/17 1 Day Ago History [Dialyvite 800-Zinc 50 mg Tab] Calcitriol [Rocaltrol] 0.5 mg PO BID #60 capsule 10/06/15 01/26/17 1 Day Ago Rx Cyclobenzaprine [Flexeril 10 MG 10 mg PO TID PRN #90 tablet 10/06/15 01/26/17 1 Day Ago Rx TAB] Ondansetron [Zofran Odt] 4 mg PO Q8H PRN #10 tab.rapdis 10/06/15 01/26/17 1 Day Ago Rx Tizanidine HCl [Zanaflex] 4 mg PO QHS #30 capsule 10/06/15 01/26/17 1 Day Ago Rx Zolpidem [Ambien] 10 mg PO QHS PRN #30 tablet 10/06/15 01/26/17 1 Day Ago Rx predniSONE [Deltasone] 20 mg PO QDAY #30 tablet 10/06/15 01/26/17 1 Day Ago Rx ALPRAZolam [Xanax TAB] 1 mg PO DAILY PRN 09/11/16 01/26/17 1 Day Ago History Cinacalcet [Sensipar] 90 mg PO QDAY 09/11/16 01/26/17 1 Day Ago History Active Meds: Active Medications Alprazolam (Xanax) 1 mg PO DAILY PRN PRN Reason: Anxiety Aspirin (Baby Aspirin) 81 mg PO QDAY [facility] Last Admin: 01/26/17 09:39 Dose: 81 mg Calcitriol (Rocaltrol) 0.5 mcg PO BID [facility] Last Admin: 01/26/17 09:42 Dose: Not Given Calcium Acetate (Phoslo) 667 mg PO TIDWM [facility] Last Admin: 01/26/17 12:18 Dose: 667 mg Cinacalcet (Sensipar) 90 mg PO QDAY [facility] Last Admin: 01/26/17 09:39 Dose: 90 mg Cyclobenzaprine HCl (Flexeril) 10 mg PO TID PRN PRN Reason: Muscle Spasm Diphenhydramine HCl (Benadryl) 25 mg IV Q6H [facility] Last Admin: 01/26/17 12:20 Dose: 25 mg Docusate Sodium (Colace) 100 mg PO BID [facility] Last Admin: 01/26/17 09:39 Dose: 100 mg Famotidine (Pepcid) 20 mg PO BID [facility] Last Admin: 01/26/17 09:39 Dose: 20 mg Guaifenesin (Robitussin Dm) 10 ml PO Q4H PRN PRN Reason: Cough Heparin Sodium (Porcine) (Heparin) 5,000 unit SUB-Q Q8HR [facility] Last Admin: 01/26/17 14:32 Dose: Not Given Hydralazine HCl (Apresoline) 50 mg PO Q8HR [facility] Last Admin: 01/26/17 14:30 Dose: 50 mg Sodium Chloride (Nacl 0.9%) 100 mls @ 999 mls/hr IV ARTUR PRN PRN Reason: Hypotension Morphine Sulfate (Morphine) 2 mg IV Q4H PRN PRN Reason: Pain, Moderate (4-6) Last Admin: 01/26/17 12:20 Dose: 2 mg Nitroglycerin (Nitrostat) 0.4 mg SL .Q5MIN PRN PRN Reason: Chest Pain Last Admin: 01/25/17 17:16 Dose: 0.4 mg Ondansetron HCl (Zofran Odt) 4 mg PO Q8H PRN PRN Reason: Nausea Prednisone (Deltasone) 20 mg PO QDAY [facility] Last Admin: 01/26/17 09:39 Dose: 20 mg Sodium Chloride (Sodium Chloride Flush Syringe 10 Ml) 10 ml IV PRN PRN PRN Reason: LINE FLUSH Tizanidine HCl (Zanaflex) 4 mg PO HS PRN PRN Reason: Muscle Spasm Zolpidem Tartrate (Ambien) 10 mg PO QHS PRN PRN Reason: Insomnia Exam - Constitutional Vitals: Temp Pulse Resp BP Pulse Ox 98.2 F 104 H 20 160/88 98 01/26/17 13:00 01/26/17 13:00 01/26/17 13:00 01/26/17 13:00 01/26/17 08:50 Results - Labs CBC & Chem 7: 01/25/17 17:14 01/26/17 13:04 Labs: Abnormal lab results 01/26/17 01/26/17 Range/Units 00:27 13:04 Chloride 96.1 L (98-107) mmol/L BUN 18 H (7-17) mg/dL Creatinine 6.5 H (0.7-1.2) mg/dL Glucose 142 H (65-100) mg/dL Calcium 8.3 L (8.4-10.2) mg/dL Troponin T 0.082 H (0.00-0.029) ng/mL
[2017-01-27 05:29] LABS: Hematocrit 27.5 % (30.3-42.9); Hemoglobin 8.6 gm/dl (10.1-14.3); Mean Corpuscular HGB Conc 31 % (30-34); Mean Corpuscular Hemoglobin 29 pg (28-32); Mean Corpuscular Volume 93 fl (79-97); Red Blood Count 2.97 M/mm3 (3.65-5.03); Red Cell Distribution Width 17.8 % (13.2-15.2); White Blood Count 5.6 K/mm3 (4.5-11.0)
[2017-01-27 05:39] LABS: BUN/Creatinine Ratio 3.49; Calcium 8.1 mg/dL (8.4-10.2); Potassium 4.2 mmol/L (3.6-5.0)
[2017-01-27] MEDS: APRESOLINE PO SCH ×2 (05:50→15:33)
[2017-01-27] MEDS: HEPARIN SUB-Q SCH ×2 (05:51→15:34)
[2017-01-27 06:13] LABS: Platelet Count 98 K/mm3 (140-440)
[2017-01-27 07:17] LABS: Anisocytosis 1+; Basophils % (Manual) 0 % (0.0-1.8); Blastocytes % (Manual) 0 %; Diff Status Complete; Elliptocytes Few; Eosinophils % (Manual) 0 % (0.0-4.3); Platelet Estimate Appears Decreased
--- NOTE | 2017-01-27 07:38 | Consultation ---
REASON FOR CONSULTATION: Renal failure. HISTORY OF PRESENT ILLNESS: This 41-year-old -[place] female with end-stage renal disease, hypertension, lupus, history of asthma, was brought to the Emergency Room with shortness of breath. The patient goes to [facility] on Wednesday, , Wednesday. The patient also complained of left substernal chest pain for the past 2-3 days. Cardiology workup is in progress. The patient's chest x-ray was reported to have pulmonary venous congestion and small bilateral pleural effusions. The patient underwent hemodialysis following admission on 01/25/2017. PAST MEDICAL HISTORY: ESRD, SLE, asthma, cardiomyopathy, arthritis. PERSONAL HISTORY: Denies smoking, alcohol, or drug abuse. FAMILY HISTORY: No family history of kidney failure. ALLERGIES: Multiple allergies as noted in the chart. CURRENT MEDICATIONS: Aspirin 81 mg a day, calcitriol 0.5 mg b.i.d., calcium acetate with meals, Sensipar 90 mg a day, Flexeril p.r.n., Pepcid 20 mg twice a day, hydralazine 50 mg q. 8 hours, prednisone 20 mg a day. REVIEW OF SYSTEMS: The patient denies fever or chills. Denies difficulty swallowing. The patient states that after dialysis, her shortness of breath got better last night. Denies abdomen pain, nausea, or vomiting. Denies dysuria or hematuria. Other review of systems reviewed and negative. PHYSICAL EXAMINATION: GENERAL: The patient is alert, oriented, well developed female, not in acute distress. VITAL SIGNS: Blood pressure 160/88, pulse 95, afebrile. EYES: Pupils reactive. Conjunctivae pale. Lips noncyanotic. NECK: No JVD. No thyroid enlargement. LUNGS: Diminished breath sounds in bases. HEART: S1, S2 regular. No pericardial rub. A 2/6 systolic murmur along the left sternal border. ABDOMEN: Soft, bowel sounds present, nontender. EXTREMITIES: No edema. Left thigh AV graft has bruit and thrill. LABORATORY DATA: WBC 3.9, hemoglobin 8.5, hematocrit 26.9, platelet count 76. Sodium 137, potassium 3.8, chloride 94.8. BUN 32, creatinine 10.3, calcium 8.5. BNP greater than 35,000. ASSESSMENT AND PLAN: 1. Congestive heart failure/fluid overload. 2. End-stage renal disease. 3. Hypertension. 4. Systemic lupus erythematosus. 5. Anemia and chronic kidney disease. Hemodialysis with ultrafiltration as tolerated. Check left ventricular ejection fraction and cardiac workup. Optimize blood pressure medications. Adjust medications per renal function. TopofForm Thank you for the consultation.BottomofForm JOB# [id number] K/NTS
[2017-01-27] MEDS: BENADRYL IV SCH ×3 (07:54→15:10)
[2017-01-27] MEDS: PHOSLO PO SCH ×3 (08:23→17:27)
[2017-01-27] MEDS ORDERED: LEXISCAN IV ONE (09:00)
[2017-01-27] MEDS ORDERED: NACL 0.9% 100 ML IV PRN (10:00)
--- NOTE | 2017-01-27 10:32 | Discharge Summary ---
Providers - Providers Date of Admission: 01/25/17 18:30 Date of discharge: 01/27/17 Attending physician: LAZARA BECERRA MD 01/25/17 Consult to Cardiac Rehabilitation [CONS] Routine Reason For Exam: Phase I 01/25/17 19:03 Consult to Physician [CONS] Routine Consulting Provider: DINESH TOWNSEND Reason For Exam: chest pain Place consult to:: [facility] Notified:: Rosey CADENA Phone number called:: Was contact made?: Yes If yes, spoke with:: [employer] service Time called:: 08:18 Primary care physician: [facility] Hospitalization Reason for admission: volume overload, ESRD on HD, CHF Condition: Good Hospital course: 41-year-old -[place] female with past medical history significant for lupus, ESRD on hemodialysis, CHF, hypertension presented to the emergency department complaining of shortness of breath for the last 1 week. Patient said her dialysis was on Wednesday and after dialysis she gained 1 pound. Patient has shortness of breath at rest. Patient is complaining left substernal chest pain for the last 2 days, 10 out of 10 in intensity, sharp, with radiation to the left arm, associated with diaphoresis, no alleviating factor, worsened with exertion. Patient has previous history of OR. patient is also complaining back pain, multiple joint pain which attributed to lupus. Patient was admitted to the floor, emergency dialysis was done, echo was done and showed ejection fraction of 30-35% she is worsened from previous base line. Cardiology was consulted and ischemic workup was done. Stress test was negative. Patient was started with beta blockers and HEATHER inhibitor. Patient was stabilized and discharged. She will follow [facility] as an outpatient. Disposition: DISCHARGED TO HOME OR SELFCARE Time spent for discharge: 31 minutes - Discharge Diagnoses (1) Chest pain at rest Status: Acute (2) End stage renal failure on dialysis Status: Acute (3) Abdominal pain Status: Acute Qualifiers: Abdominal location: A (4) Abnormal ECG Status: Acute Core Measure Documentation - Palliative Care Palliative Care/ Comfort Measures: Not Applicable - Core Measures Any of the following diagnoses?: heart failure, history only (CHF) - Heart Failure Discharge Requirements HEATHER/ARB for LVSD if EF <40%: Yes Beta gertrudis at discharge: Yes Exam - Physical Exam Narrative exam: Not in cardiopulmonary distress. The patient appeared well nourished and normally developed. Vital signs as documented. Head exam is unremarkable. No scleral icterus . Neck is without jugular venous distension, thyromegaly, or carotid bruits. Lungs clear to auscultation bilaterally. Cardiac exam reveals regular rate and Rhythm. First and second heart sounds normal. No murmurs, rubs or gallops. Abdominal exam reveals normal bowel sounds, no masses, no organomegaly and no aortic enlargement. Extremities are nonedematous and both femoral and pedal pulses are normal. 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 No focal weakness. - Constitutional Vitals: Temp Pulse Resp BP Pulse Ox 98.0 F 112 H 18 162/90 98 01/27/17 07:56 01/27/17 07:56 01/27/17 07:56 01/27/17 07:56 01/27/17 07:56 Plan Activity: no restrictions Weight Bearing Status: Full Weight Bearing Diet: low cholesterol, low salt Follow up with: PRIMARY CARE, [Primary Care Provider] - 3-5 Days Prescriptions: Tizanidine HCl [Zanaflex] 4 mg PO QHS #30 capsule Cyclobenzaprine [Flexeril 10 MG TAB] 10 mg PO TID PRN #90 tablet PRN Reason: Muscle Spasm Lisinopril [Zestril TAB] 5 mg PO QDAY #50 tablet Metoprolol Succinate 25 mg PO DAILY #30 tab.er.24h predniSONE [Deltasone] 20 mg PO QDAY #30 tablet
--- NOTE | 2017-01-27 12:15 | Progress Note ---
Assessment and Plan Assessment: Non-ischemic cardiomyopathy, LVEF 30-35% No ischemia by MPI this admission Volume overload Chest pain ESRD on HD Hx of systemic lupus Hypertension -uncontrolled Anemia Recommendations: Start beta gertrudis and ACEi therapy for non-ischemic cardiomyopathy, LVEF < 40% Outpatient follow-up for surveillance echo and possible need for AICD in the future Fluid management through HD Subjective Date of service: 01/27/17 Principal diagnosis: SOB Interval history: Lexiscan performed - no complications Objective Vital Signs Temp Pulse Pulse Resp BP BP Pulse Ox 01/27/17 11:48 98 H 01/27/17 09:56 109 H 165/89 01/27/17 09:55 111 H 170/93 01/27/17 09:54 112 H 173/99 01/27/17 09:53 114 H 169/97 01/27/17 09:52 113 H 163/94 01/27/17 08:47 90 163/94 01/27/17 07:56 98.0 F 112 H 18 162/90 98 01/27/17 06:08 97.5 F L 97 H 18 146/83 95 01/27/17 03:00 93 H 01/27/17 01:14 98.4 F 95 H 20 145/84 95 01/26/17 20:05 98.4 F 98 H 18 157/81 96 01/26/17 18:46 98.0 F 94 H 20 167/88 01/26/17 13:00 98.2 F 104 H 20 160/88 - Physical Examination HEENT: Positive: PERRL Neck: Positive: trachea midline Cardiac: Positive: Reg Rate and Rhythm Lungs: Positive: Decreased Breath Sounds - Labs and Meds CBC 01/27/17 Range/Units 04:37 WBC 5.6 (4.5-11.0) K/mm3 RBC 2.97 L (3.65-5.03) M/mm3 Hgb 8.6 L (10.1-14.3) gm/dl Hct 27.5 L (30.3-42.9) % Plt Count 98 L (140-440) K/mm3 Comprehensive Metabolic Panel 01/26/17 01/27/17 Range/Units 13:04 04:37 Sodium 137 136 L (137-145) mmol/L Potassium 3.8 4.2 (3.6-5.0) mmol/L Chloride 96.1 L 94.0 L (98-107) mmol/L Carbon Dioxide 25 24 (22-30) mmol/L BUN 18 H 29 H (7-17) mg/dL Creatinine 6.5 H 8.3 H (0.7-1.2) mg/dL Glucose 142 H 96 (65-100) mg/dL Calcium 8.3 L 8.1 L (8.4-10.2) mg/dL - Imaging and Cardiology EKG: image reviewed (t-wave inversion in leads 1 and AVF)
--- NOTE | 2017-01-27 12:37 | Query- Chest Pain ---
Sherry Stafford____Dimitris Date:____01/27/17 Projector Operator/CDS:____Hemanth Bladimiradonis Phone#: [phone] Exercise your independent professional judgment when responding to query. Questions asked do not imply a particular answer is desired or expected. We greatly appreciate your clarification on this issue. Clinical Documentation States: 41 year old female was admitted on 01/25/17. The discharge summary states " Reason for admission: volume overload, ESRD on HD , CHF, Discharge Diagnoses (1) Chest pain at rest Status: Acute " The Cardiology Progress note (01/27/17) states " Assessment: Non-ischemic cardiomyopathy, LVEF 30-35% No ischemia by MPI this admission Volume overload Chest pain ESRD on HD Hx of systemic lupus Hypertension -uncontrolled Anemia " Please document the etiology of Chest Pain: [ ] Myocardial Infarction [ ] Pneumonia [ ] Mediastinitis [ x] Costochondritis [ ] Pulmonary Embolism [ ] Coronary Artery Disease [ ] GERD [ ] Other: [ ] Comment/Explanation: Present on Admission: [ x] Yes (Y) [ ] Clinically undeterminable (W) [ ] No(N) Please document response in your Progress Notes and/or Discharge Summary and indicate if the condition was present on admission. JESSICA
--- NOTE | 2017-01-27 12:41 | Query- Heart Failure ---
Sherry Stafford Dimitris Date:___01/27/17 Senior Behavioral Scientist/CDS:____Hemanth Almaguer Phone#:___[phone] Exercise your independent professional judgment when responding to query. Questions asked do not imply a particular answer is desired or expected. We greatly appreciate your clarification on this issue. Clinical Documentation States: 41 year old female was admitted on 01/25/17. The hospitalist progress note (01/25/17) states " Assessment and plan: Fluid overload secondary to CHF exacerbation/ESRD - Emergent hemodialysis to be done - Nephrology consulted - Echo " The discharge summary states " Discharge Diagnoses (1) Chest pain at rest Status: Acute (2) End stage renal failure on dialysis Status: Acute (3) Abdominal pain Status: Acute Qualifiers: Abdominal location: A (4) Abnormal ECG Status: Acute " The Cardiology progress note (01/27/17) dictates " Assessment: Non-ischemic cardiomyopathy, LVEF 30-35% No ischemia by MPI this admission Volume overload Chest pain ESRD on HD Hx of systemic lupus Hypertension -uncontrolled Anemia " If possible, Please Clarify if you mean: Acuity: [ ] Acute [x ] Acute on Chronic [ ] Chronic Type: [ x] Systolic Heart Failure [ ] Diastolic Heart Failure [ ] Combined Heart Failure [ ] Other: Present on Admission: [ x] Yes (Y) [ ] Clinically undeterminable (W) [ ] No (N) Please also document response in your Progress Notes and/or Discharge Summary and indicate if the condition was present on admission. BELD
[2017-01-27] MEDS: BABY ASPIRIN PO SCH (13:30)
[2017-01-27] MEDS: COLACE PO SCH (13:30)
[2017-01-27] MEDS: DELTASONE PO SCH (13:31)
[2017-01-27] MEDS: ROCALTROL PO SCH (13:32)
[2017-01-27] MEDS: PEPCID PO SCH (13:32)
[2017-01-27] MEDS: SENSIPAR PO SCH (13:32)
[2017-01-27] MEDS ORDERED: NACL 0.9 (PRIMING MACHINE ONLY DIALYSIS) MC ONE (15:03)
[2017-01-27] MEDS: MORPHINE IV PRN (15:09)
--- NOTE | 2017-01-27 16:09 | Progress Note ---
Assessment and Plan Impression * End-stage renal disease on maintenance hemodialysis * Congestive heart failure. EF 30-35% * Hypertension * Anemia secondary to ESRD * Lupus Recommendations * Patient clinically out of congestive heart failure * Remove fluid as tolerated with dialysis * Cardiology notes appreciated. Continue HEATHER inhibitor as well as carvedilol * Procrit with dialysis * Discharge plans noted. No objection to discharge from renal standpoint Subjective Date of service: 01/27/17 Principal diagnosis: SOB Interval history: Patient is currently undergoing dialysis. Tolerating well. Denies any shortness of breath. No nausea or vomiting Objective - Vital Signs Vital signs: Vital Signs - 12hr 01/27/17 01/27/17 01/27/17 06:08 07:56 08:47 Temperature 97.5 F L 98.0 F Pulse Rate 90 Pulse Rate [ 97 H 112 H Right Radial] Respiratory 18 18 Rate Blood Pressure 163/94 Blood Pressure 146/83 162/90 [Right Arm] O2 Sat by Pulse 95 98 Oximetry 01/27/17 01/27/17 01/27/17 09:52 09:53 09:54 Temperature Pulse Rate 113 H 114 H 112 H Pulse Rate [ Right Radial] Respiratory Rate Blood Pressure 163/94 169/97 173/99 Blood Pressure [Right Arm] O2 Sat by Pulse Oximetry 01/27/17 01/27/17 01/27/17 09:55 09:56 11:48 Temperature Pulse Rate 111 H 109 H 98 H Pulse Rate [ Right Radial] Respiratory Rate Blood Pressure 170/93 165/89 Blood Pressure [Right Arm] O2 Sat by Pulse Oximetry 01/27/17 01/27/17 01/27/17 14:00 14:15 14:30 Temperature 98.1 F Pulse Rate 98 H 98 H 98 H Pulse Rate [ Right Radial] Respiratory 18 Rate Blood Pressure 164/87 174/103 168/97 Blood Pressure [Right Arm] O2 Sat by Pulse Oximetry 01/27/17 01/27/17 01/27/17 14:45 15:00 15:15 Temperature Pulse Rate 101 H 96 H 102 H Pulse Rate [ Right Radial] Respiratory Rate Blood Pressure 156/85 152/87 163/95 Blood Pressure [Right Arm] O2 Sat by Pulse Oximetry 01/27/17 15:30 Temperature Pulse Rate 101 H Pulse Rate [ Right Radial] Respiratory Rate Blood Pressure 146/83 Blood Pressure [Right Arm] O2 Sat by Pulse Oximetry - General Appearance General appearance: well-developed, well-nourished, appears stated age EENT: PERRL, mucous membranes moist Neck: no JVD, no thyromegaly, no carotid bruit, supple Respiratory: Present: Clear to Ascultation Cardiology: regular, normal heart rate Gastrointestinal: normal, normoactive bowel sounds Integumentary: no rash, other (AV graft in her left thigh. Cannulated for dialysis) - Lab 01/27/17 04:37 01/27/17 04:37 Most recent lab results Calcium 8.1 mg/dL (8.4-10.2) L 01/27/17 04:37
[2017-01-27] MEDS ORDERED: FLUSH HEPARIN IV ONE (17:48)
[2017-01-27 18:26] VITALS: BP 154/84
[2017-01-27] MEDS ORDERED: COREG PO SCH (22:00)
--- NOTE | 2017-01-27 23:49 | Treadmill Report ---
INDICATION: Chest pain. ORDERING PHYSICIAN: Dr. Shanks. FINDINGS: There is no scintigraphic evidence of myocardial ischemia. The left ventricular cavity is mildly dilated. There is moderate global left ventricular hypokinesis with an ejection fraction measured at 38%. CONCLUSION: 1. No scintigraphic evidence of myocardial ischemia. 2. Mildly dilated left ventricular cavity with moderate global left ventricular hypokinesis. The left ventricular ejection fraction measured at 38%. 3. This is an intermediate risk myocardial perfusion scan associated with a 1-year cardiovascular mortality between 1 and 3%. JOB# [id number] ANDREI/PATRICIA
[2017-01-28] MEDS ORDERED: ZESTRIL PO SCH (10:00)
== END 2017-01-27 19:04 | disposition home or self-care (01) | DRG 291 ==
LOC: ED 13:58 → 4A 18:30
PROVIDERS: ADMIT Internal Medicine; ATTEND Internal Medicine
PROC: 5A1D60Z (ICD-10-PCS; principal; 2017-01-25)
DX: I13.2 Hypertensive heart and chronic kidney disease with heart failure and with stage 5 chronic kidney disease, or end stage renal disease (principal); N18.6 End stage renal disease; I50.23 Acute on chronic systolic (congestive) heart failure; I42.9 Cardiomyopathy, unspecified; E87.70 Fluid overload, unspecified; I16.0 Hypertensive urgency; M32.9 Systemic lupus erythematosus, unspecified; M94.0 Chondrocostal junction syndrome [Tietze]; M19.90 Unspecified osteoarthritis, unspecified site; I25.10 Atherosclerotic heart disease of native coronary artery without angina pectoris; D63.1 Anemia in chronic kidney disease; I25.2 Old myocardial infarction; Z88.5 Allergy status to narcotic agent; Z88.0 Allergy status to penicillin; Z88.2 Allergy status to sulfonamides; Z82.49 Family history of ischemic heart disease and other diseases of the circulatory system
CPT/HCPCS: 36415; 71020; 78452; 80048; 80061; 82550; 82553; 83880; 84484; 84702; 85007; 85025; 85610; 93005; 93010; 93017; 93306; A9502; J1200; J1642; J2270; J2785; J7030; J7512

== ENCOUNTER 2017-02-17 08:07 | Day surgery (SDC) | payer MEDICARE ==
[~2017-02-17 08:07] MED LIST changes: -VANCOMYCIN/NS 1 GM/250 ML 250 ML IV NR
[2017-02-17 09:04] LABS: Hematocrit 28.7 % (30.3-42.9); Hemoglobin 8.9 gm/dl (10.1-14.3); Mean Corpuscular HGB Conc 31 % (30-34); Mean Corpuscular Hemoglobin 30 pg (28-32); Mean Corpuscular Volume 96 fl (79-97); Red Blood Count 2.99 M/mm3 (3.65-5.03); Red Cell Distribution Width 19.4 % (13.2-15.2); White Blood Count 3.2 K/mm3 (4.5-11.0)
[2017-02-17 09:05] LABS: Platelet Count 66 K/mm3 (140-440)
[2017-02-17 09:19] LABS: INR 1.18 (0.87-1.13)
[2017-02-17 09:23] LABS: Partial Thromboplastin Time 97.5 Sec. (24.2-36.6)
[2017-02-17 09:30] LABS: BUN/Creatinine Ratio 3.36; Calcium 7.9 mg/dL (8.4-10.2); Chloride 100.6 mmol/L (98-107); Potassium 4.4 mmol/L (3.6-5.0)
[2017-02-17 10:42] LABS: Basophils % (Manual) 0 % (0.0-1.8); Blastocytes % (Manual) 0 %; Eosinophils % (Manual) 0 % (0.0-4.3)
[2017-02-17 10:43] LABS: Anisocytosis 1+; Diff Status Complete; Elliptocytes 2+; Hypochromasia Few; Ovalocytes 1+; Tear Drop Cells 1+
[2017-02-17] MEDS ORDERED: HEPARIN 10,000 UNITS/10 ML ONE (11:17)
[2017-02-17] MEDS ORDERED: HEPARIN/NS 5000 UNIT/500ML(CATH LAB) 1,000 ML IR ONE (11:17)
[2017-02-17] MEDS ORDERED: ANCEF/STERILE WATER 2 GM/20 ML 2 GM/20 ML SYRINGE IV ONE (11:18)
[2017-02-17] MEDS ORDERED: NACL 0.9% 250ML 250 ML ONE (11:18)
[2017-02-17] MEDS: BENADRYL ONE ×2 (11:34→12:11)
[2017-02-17] MEDS: SUBLIMAZE ONE ×3 (11:34→12:11)
[2017-02-17] MEDS: VERSED IV ONE ×5 (11:34→12:45)
[2017-02-17] MEDS: XYLOCAINE 2% INFILTRATI ONE ×2 (11:42→11:48)
[2017-02-17] MEDS ORDERED: BENADRYL IV ONE (14:00)
[2017-02-17] MEDS ORDERED: MORPHINE IV ONE (14:00)
[2017-02-17 14:46] VITALS: BP 142/83
[2017-02-17] MEDS ORDERED: FLUSH HEPARIN IV ONE (15:00)
--- NOTE | 2017-02-17 16:52 | Operative Report ---
Operative Report Operative Report: Procedure: 1. Angiographic evaluation of a left thigh femoral/femoral AV graft. 2. Balloon angioplasty of the femoral vein outflow tract. 3. Balloon angioplasty of the arterial anastomosis. Date of Procedure: 02/17/2017 History/Indication: This is a 41-year-old female with a complicated AV access history for dialysis. Most recently she reports severe back bleeding during and after dialysis from her left thigh AV graft. Physician: Yanet Good MD Technique/Procedural Details: The patient was placed in the supine position on the procedure table, and prepped and draped in the usual sterile fashion. A timeout was performed. Local anesthetic was administered. Limited sonography of the AV graft was performed, and permanent images were acquired. Under ultrasound guidance, a 21- gauge needle was used to access the AV graft outflow. A micropuncture sheath was placed and exchanged for a short 7 Jordanian vascular sheath. Angiography was performed. A 10 mm ever cross balloon was advanced through the sheath and the balloon angioplasty of the outflow tract was performed. Angioplasty was again repeated at this region with a conquest balloon. With the balloon inflated, the vascular sheath was injected in order to perform reflux arteriography. A 3-0 Vicryl pursestring suture was placed, and the centrally directed 7 Jordanian sheath was removed. Hemostasis was achieved. Using palpation, the graft was then accessed with the 21-gauge micropuncture needle in the retrograde direction. A J-wire was advanced, and the 7 Jordanian vascular sheath was placed. Angiography was performed. An ever cross 8 mm balloon was advanced, and angioplasty of the arterial anastomosis was performed. Final angiography of the entire circuit was performed. A second 3-0 Vicryl pursestring suture was placed, and the 7 Jordanian sheath was removed. Hemostasis was achieved. Sterile dressings were placed, and the patient was transported from the procedure room in good condition. Discussion: Left femoral/femoral graft is in place. Evaluation of the outflow demonstrated a 70-80% narrowing which resolved to 20-30% after angioplasty. There was mild narrowing at the arterial anastomosis. After angioplasty, this was normal in appearance. The graft itself appears irregular, with significant areas of dilatation. However, injection of contrast from the arterial direction demonstrates immediate clearance of contrast. The patient will follow-up with me in the office so I can discuss whether or not her back bleeding has continued. Additionally, I have ordered upper extremity vein mapping and arterial duplex evaluation to investigate whether upper extremity AV access is or is not an option. Specimen: None EBL: <5 cc
--- NOTE | 2017-02-18 16:56 | Vascular Lab Report ---
MISCELLANEOUS VESSEL IDENTIFICATION: The arteriovenous access was identified in the left lower extremity and under real-time ultrasound guidance was cannulated. IMPRESSION: Successful ultrasound guided cannulation of the arteriovenous access site.
== END 2017-02-17 14:50 | disposition home or self-care (01) ==
LOC: OPU 08:07
PROVIDERS: ATTEND Radiology Diagnostic Radiology
DX: T82.510A Breakdown (mechanical) of surgically created arteriovenous fistula, initial encounter (principal); F41.9 Anxiety disorder, unspecified; Z99.2 Dependence on renal dialysis; Z98.890 Other specified postprocedural states; Z88.0 Allergy status to penicillin; Z88.2 Allergy status to sulfonamides; Z88.8 Allergy status to other drugs, medicaments and biological substances; Z79.899 Other long term (current) drug therapy; Z80.9 Family history of malignant neoplasm, unspecified; Z83.3 Family history of diabetes mellitus; Z82.49 Family history of ischemic heart disease and other diseases of the circulatory system; Y83.2 Surgical operation with anastomosis, bypass or graft as the cause of abnormal reaction of the patient, or of later complication, without mention of misadventure at the time of the procedure
CPT/HCPCS: 36415; 36902; 76937; 80048; 85007; 85025; 85610; 85730; C1725; C1751; C1894; J0690; J1200; J1644; J2250; J2270; J2930; J3010; J7050; Q9967

== ENCOUNTER 2017-02-22 08:55 | Outpatient (CLI) | payer MEDICARE ==
--- NOTE | 2017-02-23 07:27 | Vascular Lab Report ---
Upper extremity vein mapping Reason for exam: Preoperative evaluation for hemodialysis access Comments: On the right, the cephalic vein is not usable from wrist to shoulder. The basilic vein is usable from elbow to shoulder. The brachial and radial arteries are patent. The radial artery is small. Superficial thrombophlebitis is noted in the forearm basilic vein On the left, the cephalic vein is not usable from wrist to shoulder. The basilic vein is usable from abdominal to shoulder. The brachial and radial arteries are patent. The radial artery is small. Occluded internal jugular vein on the left Impression: Both cephalic veins are not suitable for use as AV access sites. Both basilic veins are suitable for use as AV access sites for elbow to the shoulder. Superficial thrombophlebitis in the right upper extremity. Deep venous thrombosis of the left internal jugular Bilateral radial arteries are too small to serve as an inflow
== END 2017-02-22 08:56 | disposition home or self-care (01) ==
LOC: VAS 08:55
PROVIDERS: ATTEND Radiology Diagnostic Radiology
DX: Z01.818 Encounter for other preprocedural examination (principal); I82.622 Acute embolism and thrombosis of deep veins of left upper extremity; I80.8 Phlebitis and thrombophlebitis of other sites; T82.898A Other specified complication of vascular prosthetic devices, implants and grafts, initial encounter; I13.2 Hypertensive heart and chronic kidney disease with heart failure and with stage 5 chronic kidney disease, or end stage renal disease; I50.9 Heart failure, unspecified; N18.6 End stage renal disease; D63.1 Anemia in chronic kidney disease; J45.909 Unspecified asthma, uncomplicated; F41.9 Anxiety disorder, unspecified
CPT/HCPCS: 93970

== ENCOUNTER 2017-03-10 09:14 | Day surgery (SDC) | payer MEDICARE ==
[~2017-03-10 09:14] MED LIST changes: +ANCEF/STERILE WATER 2 GM/20 ML 2 GM/20 ML SYRINGE IV NR
[2017-03-10 10:32] LABS: Hematocrit 29.2 % (30.3-42.9); Hemoglobin 9.2 gm/dl (10.1-14.3); Mean Corpuscular HGB Conc 32 % (30-34); Mean Corpuscular Hemoglobin 31 pg (28-32); Mean Corpuscular Volume 99 fl (79-97); Red Blood Count 2.95 M/mm3 (3.65-5.03); Red Cell Distribution Width 19.4 % (13.2-15.2); White Blood Count 3.2 K/mm3 (4.5-11.0)
[2017-03-10 10:33] LABS: Platelet Count 74 K/mm3 (140-440)
--- NOTE | 2017-03-10 11:02 | Anesthesia Day of Surgery ---
Anesthesia Day of Surgery - Day of Surgery Patient Examined: Yes Patient H&P Reviewed: Yes Patient is NPO: Yes
--- NOTE | 2017-03-10 11:02 | Anesthesia Consultation ---
Anesthesia Consult and Med Hx Date of service: 03/10/17 - Airway Anesthetic Teeth Evaluation: Dentures ROM Head & Neck: Adequate Mental/Hyoid Distance: Adequate Mallampati Class: Class II Intubation Access Assessment: Probably Good - Pulmonary Exam CTA: Yes - Cardiac Exam Cardiac Exam: RRR - Pre-Operative Health Status ASA Pre-Surgery Classification: ASA3, ASA4 Proposed Anesthetic Plan: General - Pulmonary Hx Asthma: Yes (seasonal, no inhaler ) COPD: No Hx Pneumonia: No - Cardiovascular System Hx Hypertension: Yes (when takes meds systolic in the 90's) Hx Heart Attack/AMI: Yes Hx Heart Murmur: Yes - Central Nervous System Hx Neuromuscular Disorder: Yes (lupus) Hx Seizures: Yes CVA: Yes (non hemorragic CVA, left LE weakness) Hx Psychiatric Problems: Yes (anxiety and panic attacks) - Endocrine Hx Renal Disease: Yes (Peritoneal DIALYSIS) Hx End Stage Renal Disease: Yes - Hematic Hx Anemia: Yes - Other Systems Hx Cancer: No - Additional Comments Anesthesia Medical History Comments: history of CHF doc told her heart works at 30-35% but better since her meds. Not the best historian
[2017-03-10 11:10] LABS: BUN/Creatinine Ratio 3.25; Calcium 8.5 mg/dL (8.4-10.2); Chloride 99.3 mmol/L (98-107); Potassium 5.1 mmol/L (3.6-5.0)
[2017-03-10] MEDS ORDERED: PAPAVERINE ONE (11:19)
[2017-03-10] MEDS ORDERED: PROTAMINE SULFATE ONE (11:19)
[2017-03-10] MEDS ORDERED: HEPARIN 10,000 UNITS/10 ML ONE (11:19)
[2017-03-10] MEDS ORDERED: MARCAINE 0.25% INFILTRATI ONE ×3 (11:19→12:42)
[2017-03-10] MEDS ORDERED: NACL 0.9% 500 ML 500 ML ONE (11:20)
[2017-03-10] MEDS ORDERED: PEPCID IV NR (11:30)
[2017-03-10] MEDS ORDERED: SUBLIMAZE ONE (11:31)
[2017-03-10] MEDS ORDERED: DIPRIVAN 10 MG/ML IV ONE (11:31)
[2017-03-10] MEDS ORDERED: VERSED IV NR (12:00)
[2017-03-10 12:13] LABS: Anisocytosis 1+; Basophils % (Manual) 0 % (0.0-1.8); Blastocytes % (Manual) 0 %; Elliptocytes 2+; Eosinophils % (Manual) 0 % (0.0-4.3); Hypochromasia Few; Ovalocytes 1+; Poikilocytosis 2+; Smudge Cells Few; Tear Drop Cells 1+
[2017-03-10 12:14] LABS: Diff Status Complete; Platelet Estimate Appears Decreased
[2017-03-10] MEDS ORDERED: DECADRON ONE (12:17)
[2017-03-10] MEDS ORDERED: ZOFRAN ONE (12:17)
[2017-03-10] MEDS ORDERED: XYLOCAINE MPF 2% ONE (12:17)
[2017-03-10] MEDS ORDERED: NACL 0.9% 100 ML ONE (12:24)
[2017-03-10] MEDS ORDERED: NEO SYNEPHRINE ONE (12:25)
[2017-03-10] MEDS ORDERED: PAPAVERINE IV ONE (12:42)
[2017-03-10] MEDS ORDERED: NACL 0.9% 1000 ML IR ONE (12:42)
[2017-03-10] MEDS ORDERED: HEPARIN 10,000 UNITS/10 ML 2,000 UNIT in NACL 0.9% 500 ML 500 ML IR ONE (12:44)
--- NOTE | 2017-03-10 13:45 | Operative Report ---
Operative Report Operative Report: Date of procedure: 03/10/2017 Pre-operative diagnosis: Endstage renal disease Post-operative diagnosis: Same Procedure name(s): Left radiobasilic fistula creation stage I. Surgeon: Jesse Cervantes MD, RPVI Traveling Crane Operator: None Anesthesia: Gen./local Findings #1 adequate sized basilic vein. #2 adequate size with early take off proximal radial artery. #3 palpable thrill in the fistula. #4 palpable radial pulse. #5 adequate hemostasis. Specimens: None EBL: 50 mL IV fluids: 200 mL Urine output: 0 Disposition: The recovery Procedure Patient was brought to the operating room and laid on the table in supine position. After adequate sedation anesthesia was achieved the basilic vein was marked with an ultrasound. The patient was prepped and draped in usual sterile fashion. The transverse incision over the basilic vein right below the elbow was made using #15 blade. Subcutaneous tissue was divided with Bovie electrocautery. The basilic vein was located and dissected for the length of the incision. All branches were ligated using 4-0 silk ties. Once adequate length of the vein was dissected and the vein was completely mobilized attention was turned to the brachial artery. The brachial artery divided early above elbow and the radial was dissected free and encircled with Vesseloops proximally and distally. Patient received 3000 units of heparin. The vein was disconnected distally below the elbow and irrigated with heparinized saline. The vein dilated very well. The artery was occluded with vessel loops proximally and distally the arteriotomy was made using #11 blade and Pollock scissors. The distal end of the vein was spatulated using Pollock scissors and anastomosis was created using 7-0 Prolene running suture. Prior to completion of the anastomosis back bleeding maneuvers were performed and there was good backbleeding from both sides size of the artery. Anastomosis was then was completed after it was irrigated with heparinized saline. Once the vessel loops were released there was strong thrill in the fistula and no bleeding. The wound was then closed using 3-0 Vicryl subcutaneous and 4-0 Monocryl subcuticular closure. Patient tolerated procedure well. At the end of the case all instrument, sponge, and needle counts were correct
--- NOTE | 2017-03-10 13:52 | Short Stay Summary ---
Short Stay Documentation - History H&P: obtained from office - Allergies and Medications Current Medications: Allergies acetaminophen [From Percocet] Allergy (Verified 06/20/15 11:08) Hives hydromorphone HCl [From Dilaudid] Allergy (Verified 03/10/17 10:51) Hives 03/10/[address] TOLD HER SHE WAS NOT ALLERGIC TO THIS MEDS - WAS INSTRUCTED TO TAKE BENADRYL WITH PAIN MED nifedipine [From Procardia] Allergy (Verified 06/20/15 11:08) Hives Penicillins Allergy (Verified 06/20/15 11:08) Hives Sulfa (Sulfonamide Antibiotics) Allergy (Verified 06/20/15 11:08) Hives oxycodone HCl [From Percocet] Adverse Reaction (Verified 03/10/17 10:52) Hives PT WAS TOLD BY SHE WAS NOT ALLERGIC TO THIS MED. WAS TOLD TO TAKE A BENADRYL WHEN SHE TOOK MEDICATONS mayonnaise Allergy (Uncoded 06/20/15 11:08) Unknown Home Medications Medication Instructions Recorded Confirmed Last Taken Type Ondansetron [Zofran Odt] 4 mg PO Q8H PRN #10 tab.rapdis 10/06/15 03/05/17 Rx Zolpidem [Ambien] 10 mg PO QHS PRN #30 tablet 10/06/15 03/05/17 03/10/17 Rx ALPRAZolam [Xanax TAB] 1 mg PO DAILY PRN 09/11/16 03/05/17 03/10/17 History Cinacalcet [Sensipar] 90 mg PO QDAY 09/11/16 03/05/17 02/16/17 History 90mg Cyclobenzaprine [Flexeril 10 MG 10 mg PO TID PRN #90 tablet 01/27/17 03/05/17 Rx TAB] Lisinopril [Zestril TAB] 5 mg PO QDAY #50 tablet 01/27/17 03/05/17 03/10/17 Rx Metoprolol Succinate 25 mg PO DAILY #30 tab.er.24h 01/27/17 03/10/17 03/10/17 07 :45 Rx Tizanidine HCl [Zanaflex] 4 mg PO QHS #30 capsule 05/03/05/17 03/10/17 Rx predniSONE [Deltasone] 20 mg PO QDAY #30 tablet 01/27/17 03/05/17 03/10/17 Rx Active Medications Cefazolin Sodium (Ancef/Sterile Water 2 Gm/20 Ml) 2 gm in 20 mls @ 80 mls/hr IV PREOP NR PRN Reason: Protocol Stop: 03/10/17 23:59 Sodium Chloride (Nacl 0.9% 1000 Ml) 1,000 mls @ 42 mls/hr IV DIRECT PETEY Last Admin: 03/10/17 10:05 Dose: 42 mls/hr Midazolam HCl (Versed) 2 mg IV PREOP NR Stop: 03/10/17 23:59 Last Admin: 03/10/17 11:23 Dose: 2 mg - Brief post op/procedure progress note Procedure: Pre-operative diagnosis: Endstage renal disease Post-operative diagnosis: Same Procedure name(s): Left radiobasilic fistula creation stage I. Surgeon: Purvi Cervantes MD, RPVI Crm Developer: None Anesthesia: Gen./local Findings #1 adequate sized basilic vein. #2 adequate size with early take off proximal radial artery. #3 palpable thrill in the fistula. #4 palpable radial pulse. #5 adequate hemostasis. Specimens: None EBL: 50 mL IV fluids: 200 mL Urine output: 0 Disposition: The recovery - Disposition Condition at discharge: Good Disposition: DC-01 TO HOME OR SELFCARE Short Stay Discharge Plan Activity: advance as tolerated, other (no heavy weight lifting with left arm for 6 weeks) Weight Bearing Status: Full Weight Bearing Diet: renal Wound: open to air Follow up with: FELIX SHEN MD [Primary Care Provider] - 7 Days PURVI CERVANTES MD [Staff Physician] - 14 Days
[2017-03-10] MEDS ORDERED: BENADRYL IV PRN (14:20)
--- NOTE | 2017-03-10 14:25 | Post Anesthesia Evaluation ---
- Post Anesthesia Evaluation Patient Participated: Yes Airway Patent: Yes Stable Respiratory Function: Yes Nausea/Vomiting: No Temp > 96.8F: Yes Pain Manageable: Yes Adequeate Hydration: Yes Anesthesia Complications: No
[2017-03-10] MEDS: DILAUDID IV PRN ×5 (14:31→15:15)
[2017-03-10] MEDS ORDERED: BENADRYL IV ONE (15:19)
[2017-03-10] MEDS ORDERED: FLUSH HEPARIN IV ONE (17:18)
[2017-03-10 18:10] VITALS: BP 92/53
== END 2017-03-10 17:50 | disposition home or self-care (01) ==
LOC: OR 09:14
PROVIDERS: ATTEND Surgery Vascular Surgery
DX: I13.2 Hypertensive heart and chronic kidney disease with heart failure and with stage 5 chronic kidney disease, or end stage renal disease (principal); N18.6 End stage renal disease; I50.9 Heart failure, unspecified; F41.0 Panic disorder [episodic paroxysmal anxiety]; D64.9 Anemia, unspecified; Z88.0 Allergy status to penicillin; Z88.8 Allergy status to other drugs, medicaments and biological substances; Z88.2 Allergy status to sulfonamides; Z91.018 Allergy to other foods; Z79.899 Other long term (current) drug therapy; Z99.2 Dependence on renal dialysis; Z98.890 Other specified postprocedural states; Z80.9 Family history of malignant neoplasm, unspecified; Z83.3 Family history of diabetes mellitus; Z82.49 Family history of ischemic heart disease and other diseases of the circulatory system; Z86.73 Personal history of transient ischemic attack (TIA), and cerebral infarction without residual deficits
CPT/HCPCS: 36415; 36821; 80048; 84703; 85007; 85025; J0690; J1100; J1170; J1200; J1642; J1644; J2250; J2370; J2405; J2440; J2704; J2720; J3010; J7030; J7040

== ENCOUNTER 2017-03-11 12:40 | Inpatient (IN) | payer MEDICARE ==
[2017-03-11] MEDS ORDERED: ZOFRAN IV ONE (12:53)
[2017-03-11] MEDS ORDERED: BENADRYL IV ONE (12:54)
[2017-03-11] MEDS ORDERED: MORPHINE IV ONE ×2 (12:54→13:43)
[2017-03-11 13:49] LABS: Basophils % (Auto) 0.2 % (0.0-1.8); Eosinophils % (Auto) 0.2 % (0.0-4.3); Hematocrit 29.7 % (30.3-42.9); Hemoglobin 9.6 gm/dl (10.1-14.3); Mean Corpuscular HGB Conc 32 % (30-34); Mean Corpuscular Hemoglobin 32 pg (28-32); Mean Corpuscular Volume 99 fl (79-97); Red Blood Count 3.01 M/mm3 (3.65-5.03); Red Cell Distribution Width 19.9 % (13.2-15.2); White Blood Count 3.4 K/mm3 (4.5-11.0)
[2017-03-11 13:51] LABS: Platelet Count 73 K/mm3 (140-440)
[2017-03-11 13:57] LABS: INR 1.13 (0.87-1.13)
[2017-03-11 13:58] LABS: Partial Thromboplastin Time 50.5 Sec. (24.2-36.6)
[2017-03-11 14:25] LABS: Phosphorous 3.9 mg/dL (2.5-4.5)
[2017-03-11 14:28] LABS: Albumin 3.7 g/dL (3.9-5); Albumin/Globulin Ratio 1.1 %; Alkaline Phosphatase 78 units/L (35-129); BUN/Creatinine Ratio 3.82; Blood Urea Nitrogen 36 mg/dL (7-17); Calcium 8.3 mg/dL (8.4-10.2); Carbon Dioxide 29 mmol/L (22-30); Chloride 95.3 mmol/L (98-107); Glucose 110 mg/dL (65-100); Sodium 134 mmol/L (137-145); Total Protein 7.1 g/dL (6.3-8.2)
[2017-03-11 14:29] LABS: Alanine Aminotransferase < 5 units/L (7-56); Bilirubin,Direct < 0.2 mg/dL (0-0.2)
[2017-03-11 14:30] LABS: Anion Gap 14 mmol/L
--- NOTE | 2017-03-11 14:49 | Emergency Department Report ---
ED General Adult HPI - General Chief complaint: Extremity Injury, Upper Stated complaint: LEFT ARM PAIN,BACK PAIN Time Seen by Provider: 03/11/17 12:49 Source: patient, EMS Mode of arrival: Stretcher Limitations: No Limitations - History of Present Illness Initial comments: Patient states that she had partial dialysis today utilizing her groin fistula. Yesterday she had a fistula placed in her left upper extremity. She states that during dialysis she experienced severe pain in her left antecubital area and her left arm distally. She did not complain of any distal weakness or numbness. She stated that she did feel like her arm was cool and that the color of the fistulous site appeared somewhat darker. There is some report that her arm may have been bluish for the charge nurse. At the time of my preliminary examination, she was in the hallway and her arm was not cyanotic. It was somewhat cool from the antecubital area distally in comparison to the right arm. The fistula site was intact but slightly ecchymotic. I could not appreciate a thrill. The patient had hit this seizure and was extremely difficult to examine. She was placed in a treatment area where a portable Doppler exam could be performed. I notified Dr. Givens of the above history and findings. -: Sudden Location: left, upper extremity Radiation: non-radiation Severity scale (0 -10): 10 Quality: aching Consistency: constant Improves with: none Worsens with: none Associated Symptoms: other (mentions chronic back pain) Treatments Prior to Arrival: none - Related Data Home Medications Medication Instructions Recorded Confirmed Last Taken ALPRAZolam [Xanax TAB] 1 mg PO DAILY PRN 09/11/16 03/05/17 03/10/17 Cinacalcet [Sensipar] 90 mg PO QDAY 09/11/16 03/05/17 02/16/17 90mg Previous Rx's Medication Instructions Recorded Last Taken Type Ondansetron [Zofran Odt] 4 mg PO Q8H PRN #10 tab.rapdis 10/06/15 03/10/17 Rx Zolpidem [Ambien] 10 mg PO QHS PRN #30 tablet 10/06/15 03/10/17 Rx Cyclobenzaprine [Flexeril 10 MG 10 mg PO TID PRN #90 tablet 01/27/17 03/10/17 Rx TAB] Lisinopril [Zestril TAB] 5 mg PO QDAY #50 tablet 01/27/17 03/10/17 Rx Metoprolol Succinate 25 mg PO DAILY #30 tab.er.24h 01/27/17 03/10/17 07:45 Rx Tizanidine HCl [Zanaflex] 4 mg PO QHS #30 capsule 01/27/17 03/10/17 Rx predniSONE [Deltasone] 20 mg PO QDAY #30 tablet 01/27/17 03/10/17 Rx HYDROmorphone [Dilaudid] 1 mg PO Q4HR #20 tablet 03/10/17 Unknown Rx traMADol [Ultram 50 MG tab] 50 mg PO Q12HR PRN #30 tablet 03/10/17 Unknown Rx Allergies Allergy/AdvReac Type Severity Reaction Status Date / Time acetaminophen [From Percocet] Allergy Hives Verified 06/20/15 11:08 hydromorphone HCl Allergy Hives Verified 03/10/17 10:51 [From Dilaudid] nifedipine [From Procardia] Allergy Hives Verified 06/20/15 11:08 Penicillins Allergy Hives Verified 06/20/15 11:08 Sulfa (Sulfonamide Allergy Hives Verified 06/20/15 11:08 Antibiotics) oxycodone HCl [From Percocet] AdvReac Hives Verified 03/10/17 10:52 mayonnaise Allergy Unknown Uncoded 06/20/15 11:08 ED Review of Systems ROS: Stated complaint: LEFT ARM PAIN,BACK PAIN Other details as noted in HPI Constitutional: denies: chills, fever Eyes: denies: eye pain, eye discharge, vision change ENT: denies: ear pain, throat pain Respiratory: denies: cough, shortness of breath, wheezing Cardiovascular: as per HPI. denies: chest pain, palpitations Endocrine: no symptoms reported Gastrointestinal: denies: abdominal pain, nausea, diarrhea Genitourinary: denies: urgency, dysuria, discharge Musculoskeletal: as per HPI, back pain. denies: joint swelling, arthralgia Skin: denies: rash, lesions Neurological: denies: headache, weakness, paresthesias Psychiatric: denies: anxiety, depression Hematological/Lymphatic: as per HPI. 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 - Surgical History Additional Surgical History: shunts, ports csection x 2 - Social History Smoking Status: Never Smoker Substance Use Type: None - Medications Home Medications: Home Medications Medication Instructions Recorded Confirmed Last Taken Type Ondansetron [Zofran Odt] 4 mg PO Q8H PRN #10 tab.rapdis 10/06/15 03/05/17 Rx Zolpidem [Ambien] 10 mg PO QHS PRN #30 tablet 10/06/15 03/05/17 03/10/17 Rx ALPRAZolam [Xanax TAB] 1 mg PO DAILY PRN 09/11/16 03/05/17 03/10/17 History Cinacalcet [Sensipar] 90 mg PO QDAY 09/11/16 03/05/17 02/16/17 History 90mg Cyclobenzaprine [Flexeril 10 MG 10 mg PO TID PRN #90 tablet 01/27/17 03/05/17 Rx TAB] Lisinopril [Zestril TAB] 5 mg PO QDAY #50 tablet 01/27/17 03/05/17 03/10/17 Rx Metoprolol Succinate 25 mg PO DAILY #30 tab.er.24h 01/27/17 03/10/17 03/10/17 07 :45 Rx Tizanidine HCl [Zanaflex] 4 mg PO QHS #30 capsule 01/27/17 03/05/17 03/10/17 Rx predniSONE [Deltasone] 20 mg PO QDAY #30 tablet 01/27/17 03/05/17 03/10/17 Rx HYDROmorphone [Dilaudid] 1 mg PO Q4HR #20 tablet 03/10/17 Unknown Rx traMADol [Ultram 50 MG tab] 50 mg PO Q12HR PRN #30 tablet 03/10/17 Unknown Rx ED Physical Exam - General Limitations: Other (anxiety and pain, limited exam) General appearance: alert, in no apparent distress - Head Head exam: Present: atraumatic, normocephalic - Eye Eye exam: Present: normal appearance. Absent: scleral icterus - ENT ENT exam: Present: mucous membranes moist - Neck Neck exam: Present: normal inspection - Respiratory Respiratory exam: Present: normal lung sounds bilaterally. Absent: respiratory distress - Cardiovascular Cardiovascular Exam: Present: regular rate, normal rhythm. Absent: systolic murmur, diastolic murmur, rubs, gallop - GI/Abdominal GI/Abdominal exam: Present: soft, normal bowel sounds. Absent: distended, tenderness, guarding, rebound - Extremities Exam Extremities exam: Present: other (left forearm is somewhat cool but it is not cyanotic. There is no thrill. There appears to be some fullness in the antecubital fossa. I do not feel a thrill.) - Back Exam Back exam: Present: normal inspection - Neurological Exam Neurological exam: Present: alert, oriented X3, CN II-XII intact, other (there is quite a bit of hypesthesia of the arm limiting examination). Absent: motor sensory deficit - Psychiatric Psychiatric exam: Present: anxious - Skin Skin exam: Present: ecchymosis, other (no signs of infection. Forearm is somewhat cool). Absent: rash ED Course Vital Signs 03/11/17 03/11/17 03/11/17 12:44 12:45 13:00 Temperature 98.1 F Respiratory 18 Rate Blood Pressure 98/63 102/58 O2 Sat by Pulse 96 99 Oximetry 03/11/17 03/11/17 03/11/17 13:15 13:30 14:00 Temperature Respiratory Rate Blood Pressure 104/60 91/54 97/61 O2 Sat by Pulse 99 100 Oximetry 03/11/17 14:33 Temperature Respiratory 18 Rate Blood Pressure O2 Sat by Pulse 100 Oximetry - Reevaluation(s) Reevaluation #1: A bedside arterial Doppler/graft study was performed. It showed graft thrombosis. The tech inform me that there was little flow through the ulnar artery but flow through the radius. 03/11/17 14:51 Reevaluation #2: The patient was examined by vascular surgery. Yobani informed me that no acute intervention is indicated. He stated that the patient could be followed in the office. He told me that because of the patient's lower blood pressure ( systolic 105) that declotting the fistula at this point would be futile. The patient is receiving partial dialysis. She is experiencing quite a bit of left arm pain. I informed vascular that the patient would be admitted. They will be following the patient along. I placed a consult to renal concerning the patient's ongoing dialysis. Vascular inform me that she previously was on peritoneal dialysis but this was discontinued due to a "ruptured ovarian cyst". I do not know if the patient's long-term solution will be. Thus, she is admitted to the hospital for interval examination by vascular, renal consultation and pain management. Patient is seen and admitted to the hospitalist service by Dr. Manning. 03/11/17 14:51 ED Medical Decision Making - Lab Data Result diagrams: 03/11/17 13:11 03/11/17 13:11 Laboratory Results - last 24 hr 03/11/17 03/11/17 03/11/17 13:11 13:11 13:11 WBC 3.4 L RBC 3.01 L Hgb 9.6 L Hct 29.7 L MCV 99 H MCH 32 MCHC 32 RDW 19.9 H Plt Count 73 L Lymph % (Auto) 32.4 Shannon % (Auto) 12.8 H Eos % (Auto) 0.2 Baso % (Auto) 0.2 Lymph # 1.1 L Shannon # 0.4 Eos # 0.0 Baso # 0.0 Seg Neutrophils % 54.4 Seg Neutrophils # 1.8 PT INR APTT Sodium 134 L Potassium 4.0 D Chloride 95.3 L Carbon Dioxide 29 D Anion Gap 14 BUN 36 H Creatinine 9.4 H Estimated GFR 6 BUN/Creatinine Ratio 3.82 Glucose 110 H Lactic Acid Calcium 8.3 L Phosphorus Total Bilirubin 0.20 Direct Bilirubin < 0.2 Indirect Bilirubin 0.0 AST 12 ALT < 5 L Alkaline Phosphatase 78 NT-Pro-B Natriuret Pep Total Protein 7.1 Albumin 3.7 L Albumin/Globulin Ratio 1.1 Blood Type A POSITIVE Antibody Screen TNR MICHOACANO Antibody Screen Negative 03/11/17 03/11/17 03/11/17 13:11 13:11 13:13 WBC RBC Hgb Hct MCV MCH MCHC RDW Plt Count Lymph % (Auto) Shannon % (Auto) Eos % (Auto) Baso % (Auto) Lymph # Shannon # Eos # Baso # Seg Neutrophils % Seg Neutrophils # PT 14.4 INR 1.13 APTT 50.5 H Sodium Potassium Chloride Carbon Dioxide Anion Gap BUN Creatinine Estimated GFR BUN/Creatinine Ratio Glucose Lactic Acid 1.90 Calcium Phosphorus 3.90 Total Bilirubin Direct Bilirubin Indirect Bilirubin AST ALT Alkaline Phosphatase NT-Pro-B Natriuret Pep 7294 H Total Protein Albumin Albumin/Globulin Ratio Blood Type Antibody Screen MICHOACANO Antibody Screen Critical care attestation.: If time is entered above; I have spent that time in minutes in the direct care of this critically ill patient, excluding procedure time. ED Disposition Clinical Impression: Thrombocytopenia, End stage renal disease on dialysis Thrombosis of arteriovenous fistula Qualifiers: Encounter type: initial encounter Qualified Code(s): T82.868A - Thrombosis due to vascular prosthetic devices, implants and grafts, initial encounter Anemia Qualifiers: Anemia type: unspecified type Qualified Code(s): D64.9 - Anemia, unspecified Disposition: 09 OP ADMIT IP TO THIS HOSP Is pt being admited?: Yes Does the pt Need Aspirin: No (thrombocytopenia) Condition: Stable Referrals: PRIMARY CARE, [Primary Care Provider] - 3-5 Days Time of Disposition: 14:59
--- NOTE | 2017-03-11 15:14 | XRay Report ---
Single view chest: Compared to 01/25/17. History: Hypertension. Findings: Cardiomegaly. Trachea is midline. Stable Port-A-Cath. No consolidation, pneumothorax or pleural effusion and the present study. There is a faint ill-defined retrocardiac density noted left lower lobe which may represent pneumonitis. Impression: Ill-defined faint retrocardiac density left lower lobe.
--- NOTE | 2017-03-11 15:28 | Admit Criteria Form ---
Admission Criteria Documentation: VASCULAR DISEASE GRG Clinical Indications for Admission to Inpatient Care (Place 'X' for any and all applicable criteria): Hospital admission is needed for appropriate care of the patient because of ANY ONE of the following (1)(2)(3)(4): [ ]I. Life-threatening or limb-threatening skin ulcer as indicated by ANY ONE of the following(5): [ ]a) Surrounding cellulitis unresponsive to outpatient treatment [ ]b) Wet gangrene [ ]c) Lymphangitis [ ]d) Bacteremia [ ]II. Gangrene requiring intensity and frequency of care not manageable to outpatient, emergency, or observation level of care(5) [ ]III. Severe pain requiring acute inpatient management [ ]IV. Interventional revascularization (eg, surgery, thrombolysis) needed (eg , critical limb ischemia)(21) [ ]V. Urgent inpatient IV anticoagulation needed due to ALL of the following: [ ]a) Temporary subtherapeutic anticoagulation unacceptable because of high risk of short-term venous or arterial thromboembolism due to ANY ONE of the following(7)(8)(9): [ ]i) Venous thromboembolism within the past 12 months [ ]ii) Underlying malignancy [ ]iii) Patient with mechanical cardiac valve(10)(11) [ ]iv) Underlying hypercoagulable state (eg, protein C or protein S deficiency, antithrombin deficiency, antiphospholipid antibodies) [ ]v) Patient at high risk of thromboembolism (eg, status post orthopedic surgery, history of recurrent venous thromboembolism) [ ]vi) Atrial fibrillation with rheumatic valvular heart disease [ ]vii) Atrial fibrillation with 3 or MORE of the following : [ ]1) Congestive heart failure [ ]2) Hypertension [ ]3) Age 65 years or older [ ]4) Diabetes mellitus [ ]5) History of thromboembolism (eg, stroke, TIA , or systemic embolization) more than 3 months ago [ ]6) Female gender [ ]b) Contraindications to outpatient use of "bridging" agent or alternative oral anticoagulant as indicated by ALL of the following: [ ]i) Contraindication to outpatient use of low-molecular -weight heparin as "bridging" agent as indicated by ANY ONE of the following(8) : [ ]1) Documented current or history of heparin- induced thrombocytopenia(12) [ ]2) Severe thrombocytopenia (eg, platelet count less than 50,000/mm3 (50 x109/L)) [ ]3) Documented allergy to heparin, low- molecular-weight heparin, or pork products [ ]4) Renal failure (creatinine clearance < 30 mL /min/1.73m2 (0.50 mL/sec/1.73m2) or on dialysis) [ ]5) Inability to manage self-injection (eg, by patient, caregiver, or visiting nurse) [ ]ii) Contraindication to outpatient use of fondaparinux as "bridging" agent as indicated by ANY ONE of the following(13)(14)(15)(16): [ ]1) Severe thrombocytopenia (eg, platelet count less than 50,000/mm3 (50 x109/L)) [ ]2) Hypersensitivity to fondaparinux, related drugs, or product components [ ]3) Renal failure (creatinine clearance less than 30 mL/min/1.73m2 (0.50 mL/sec/1.73m2) or on dialysis) [ ]4) Inability to manage self-injection (eg, by patient, caregiver, or visiting nurse) [ ]iii) Oral direct thrombin inhibitor (eg, dabigatran) or oral coagulation factor Xa inhibitor (eg, rivaroxaban) not appropriate as oral anticoagulation (eg, indication not appropriate) or contraindicated (eg, hypersensitivity, renal failure)(13)(16)(17)(18)(19)(20) [ ]. Suspected severe acute ischemia due to peripheral vascular disease as indicated by ANY ONE of the following(5)(6): [ ]a) Tissue necrosis [ ]b) Severe pain [ ]c) Acute pulselessness [ ]d) Other evidence of acute severe ischemia (eg, lactic acidosis , motor dysfunction) [ ]VII. Acute or newly diagnosed major vessel (eg, aorta) dissection, rupture, or leakage(5)(6)(22)(23) [X ]VIII.Vascular Disease and ALL of the following: [X ]a) Symptom or finding for which emergency and observation care have failed or are not considered appropriate (Use General Criteria: Observation Care as appropriate) [X ]b) Presence of ANY ONE of the following: [ X]i) A General Admission Criteria [ ]ii) A Pediatric General Admission Criteria The original [facility] content created by [facility] has been revised. The portions of the content which have been revised are identified through the use of italic text or in bold, and [facility] has neither reviewed nor approved the modified material. All other unmodified content is copyright [facility]. Please see references footnoted in the original [facility] edition 2016 Admission Criteria Met: Yes
--- NOTE | 2017-03-11 17:10 | Consultation ---
History of Present Illness - Reason for Consult Consult date: 03/11/17 left arm pain s/p AVF creation Requesting physician: EMERALD HERNANDEZ - History of Present Illness She came to ER waiting of left arm pain beginning from shoulder and radiating to the hand with numbness and tingling. She is postoperative day #1 after creation of left arm radiobasilic AV fistula. She did not notice any discharge from the incision site. She went to dialysis today via her left thigh access. Also after surgery she is been hypotensive to 90s-100s. ER ultrasound was performed and showed thrombosed left arm AV fistula. Patient is not sure if she is having lupus flareup or caused by surgery. She admits to having lupus flareups after each surgical intervention. Patient had multiple previous failed dialysis accesses, including peritoneal dialysis. Past History Past Medical History: other (Lupus) Past Surgical History: Other (multiple previous access procedures. The dialysis catheter placement. Ruptured ovarian cyst) Medications and Allergies Allergies Allergy/AdvReac Type Severity Reaction Status Date / Time acetaminophen [From Percocet] Allergy Hives Verified 06/20/15 11:08 hydromorphone HCl Allergy Hives Verified 03/10/17 10:51 [From Dilaudid] nifedipine [From Procardia] Allergy Hives Verified 06/20/15 11:08 Penicillins Allergy Hives Verified 06/20/15 11:08 Sulfa (Sulfonamide Allergy Hives Verified 06/20/15 11:08 Antibiotics) oxycodone HCl [From Percocet] AdvReac Hives Verified 03/10/17 10:52 mayonnaise Allergy Unknown Uncoded 06/20/15 11:08 Home Medications Medication Instructions Recorded Confirmed Last Taken Type Cinacalcet [Sensipar] 90 mg PO QDAY 09/11/16 03/11/17 03/09/17 History Cyclobenzaprine [Flexeril 10 MG 10 mg PO TID PRN #90 tablet 01/27/17 03/11/17 Rx TAB] Lisinopril [Zestril TAB] 5 mg PO QDAY #50 tablet 01/27/17 03/11/17 03/10/17 Rx Metoprolol Succinate 25 mg PO DAILY #30 tab.er.24h 01/27/17 03/11/17 03/10/17 07 :45 Rx Tizanidine HCl [Zanaflex] 4 mg PO QHS #30 capsule 01/27/17 03/11/17 03/10/17 Rx predniSONE [Deltasone] 20 mg PO QDAY #30 tablet 01/27/17 03/11/17 03/10/17 Rx HYDROmorphone [Dilaudid] 1 mg PO Q4HR #20 tablet 03/10/17 03/11/17 Unknown Rx traMADol [Ultram 50 MG tab] 50 mg PO Q12HR PRN #30 tablet 03/10/17 03/11/1707/16 Rx Diphenhydramine HCl [Sleep Tabs 25 mg PO DAILY PRN 03/11/17 03/11/17 03/09/17 History 25MG] Exam - Constitutional Vitals: Temp Pulse Resp BP Pulse Ox 98.1 F 18 97/61 100 03/11/17 12:44 03/11/17 14:33 03/11/17 14:00 03/11/17 14:33 Peripheral Pulses: within normal limits - Peripheral pulses radial pulse Pulse Strength: 2+ Results - Labs CBC & Chem 7: 03/11/17 13:11 03/11/17 13:11 Labs: Abnormal lab results 03/11/17 03/11/17 03/11/17 Range/Units 13:11 13:11 13:11 WBC 3.4 L (4.5-11.0) K/mm3 RBC 3.01 L (3.65-5.03) M/mm3 Hgb 9.6 L (10.1-14.3) gm/dl Hct 29.7 L (30.3-42.9) % MCV 99 H (79-97) fl RDW 19.9 H (13.2-15.2) % Plt Count 73 L (140-440) K/mm3 [place] % (Auto) 12.8 H (0.0-7.3) % Lymph # 1.1 L (1.2-5.4) K/mm3 APTT (24.2-36.6) Sec. Sodium 134 L (137-145) mmol/L Chloride 95.3 L (98-107) mmol/L BUN 36 H (7-17) mg/dL Creatinine 9.4 H (0.7-1.2) mg/dL Glucose 110 H (65-100) mg/dL Calcium 8.3 L (8.4-10.2) mg/dL ALT < 5 L (7-56) units/L NT-Pro-B Natriuret Pep 7294 H (0-450) pg/mL Albumin 3.7 L (3.9-5) g/dL 03/11/ Range/Units 13:11 WBC (4.5-11.0) K/mm3 RBC (3.65-5.03) M/mm3 Hgb (10.1-14.3) gm/dl Hct (30.3-42.9) % MCV (79-97) fl RDW (13.2-15.2) % Plt Count (140-440) K/mm3 [place] % (Auto) (0.0-7.3) % Lymph # (1.2-5.4) K/mm3 APTT 50.5 H (24.2-36.6) Sec. Sodium (137-145) mmol/L Chloride (98-107) mmol/L BUN (7-17) mg/dL Creatinine (0.7-1.2) mg/dL Glucose (65-100) mg/dL Calcium (8.4-10.2) mg/dL ALT (7-56) units/L NT-Pro-B Natriuret Pep (0-450) pg/mL Albumin (3.9-5) g/dL - Imaging and Cardiology Venous US: other (AV access imaging of left arm) Assessment and Plan 41-year-old female with extensive past surgical history of multiple previous dialysis accesses including peritoneal dialysis previously. She came for excruciating left arm pain starting from the back and shoulder and extending to the whole arm to the hand. She has palpable radial pulse. Hand temperature is symmetrical. On AV fistula imaging there is no patency of AV fistula, areas thrombosed, which may be caused by current hypotension issue. There is no vascular compromise of the hand. Her incision looks clean dry and intact with mild ecchymosis, expected postoperative changes. Pain location may be due to positioning during surgery which caused muscle spasm. She also may have lupus flareup. There is no indication for vascular intervention at this point. She was explained to return to the office for further vein mapping and AV fistula or graft placement in different location. She needs to improve blood pressure management to arrange 120-140 systolic and pain control with IV or PO pain medications. She is being dialyzed via present left thigh AV access, where palpable thrill present. There is a possibility of the patient might benefit to go back to peritoneal dialysis.
--- NOTE | 2017-03-11 19:44 | History and Physical Report ---
History of Present Illness Date of examination: 03/11/17 Date of admission: 03/11/17 Chief complaint: LUE pain History of present illness: - History of Present Illness 41 y/o female presents to ED for LUE pain.She [place] [facility] [place] went for HD today and her rt Groin access was used.Had partial HD.Being admitted for possible AV fistula clot.Vascular surgery intervention if needed.No SOB/fever/chills. Past Medical Hx Hx Hypertension: Yes (when takes meds systolic in the 90's) Hx Heart Attack/AMI: Yes Hx Congestive Heart Failure: Yes Hx Diabetes: No Hx Renal Disease: Yes (Peritoneal DIALYSIS) Hx Arthritis: Yes Hx Seizures: Yes Hx Asthma: Yes (seasonal, no inhaler ) Hx COPD: No Additional medical history: sle lupus leaky valve - Surgical History Additional Surgical History: shunts, ports csection x 2 - Social History Smoking Status: Never Smoker Substance Use Type: None - Medications Home Medications: Home Medications Medication Instructions Recorded Confirmed Last Taken Type Ondansetron [Zofran Odt] 4 mg PO Q8H PRN #10 tab.rapdis 10/06/15 03/05/17 Rx Zolpidem [Ambien] 10 mg PO QHS PRN #30 tablet 10/06/15 03/05/17 03/10/17 Rx ALPRAZolam [Xanax TAB] 1 mg PO DAILY PRN 09/11/16 03/05/17 03/10/17 History Cinacalcet [Sensipar] 90 mg PO QDAY 09/11/16 03/05/17 02/16/17 History 90mg Cyclobenzaprine [Flexeril 10 MG 10 mg PO TID PRN #90 tablet 01/27/17 03/05/17 Rx TAB] Lisinopril [Zestril TAB] 5 mg PO QDAY #50 tablet 01/27/17 03/05/17 03/10/17 Rx Metoprolol Succinate 25 mg PO DAILY #30 tab.er.24h 01/27/17 03/10/17 03/10/17 07 :45 Rx Tizanidine HCl [Zanaflex] 4 mg PO QHS #30 capsule 05/31/17 07/07/17 07/12/17 Rx predniSONE [Deltasone] 20 mg PO QDAY #30 tablet 01/27/17 03/05/17 03/10/17 Rx HYDROmorphone [Dilaudid] 1 mg PO Q4HR #20 tablet 03/10/17 Unknown Rx traMADol [Ultram 50 MG tab] 50 mg PO Q12HR PRN #30 tablet 03/10/17 Unknown Rx Allergies Allergy/AdvReac Type Severity Reaction Status Date / Time acetaminophen [From Percocet] Allergy Hives Verified 06/20/15 11:08 hydromorphone HCl Allergy Hives Verified 03/10/17 10:51 [From Dilaudid] nifedipine [From Procardia] Allergy Hives Verified 06/20/15 11:08 Penicillins Allergy Hives Verified 06/20/15 11:08 Sulfa (Sulfonamide Allergy Hives Verified 06/20/15 11:08 Antibiotics) oxycodone HCl [From Percocet] AdvReac Hives Verified 03/10/17 10:52 mayonnaise Allergy Unknown Uncoded 06/20/15 11:08 ED Review of Systems ROS: Stated complaint: LEFT ARM PAIN,BACK PAIN Other details as noted in HPI Constitutional: denies: chills, fever Eyes: denies: eye pain, eye discharge, vision change ENT: denies: ear pain, throat pain Respiratory: denies: cough, shortness of breath, wheezing Cardiovascular: as per HPI. denies: chest pain, palpitations Endocrine: no symptoms reported Gastrointestinal: denies: abdominal pain, nausea, diarrhea Genitourinary: denies: urgency, dysuria, discharge Musculoskeletal: as per HPI, back pain. denies: joint swelling, arthralgia Skin: denies: rash, lesions Neurological: denies: headache, weakness, paresthesias Psychiatric: denies: anxiety, depression Hematological/Lymphatic: as per HPI. denies: easy bleeding, easy bruising Past History Past Medical History: other (Lupus) Past Surgical History: Other (multiple previous access procedures. The dialysis catheter placement. Ruptured ovarian cyst) Medications and Allergies Allergies Allergy/AdvReac Type Severity Reaction Status Date / Time acetaminophen [From Percocet] Allergy Hives Verified 06/20/15 11:08 hydromorphone HCl Allergy Hives Verified 03/10/17 10:51 [From Dilaudid] nifedipine [From Procardia] Allergy Hives Verified 06/20/15 11:08 Penicillins Allergy Hives Verified 06/20/15 11:08 Sulfa (Sulfonamide Allergy Hives Verified 06/20/15 11:08 Antibiotics) oxycodone HCl [From Percocet] AdvReac Hives Verified 03/10/17 10:52 mayonnaise Allergy Unknown Uncoded 06/20/15 11:08 Home Medications Medication Instructions Recorded Confirmed Last Taken Type Cinacalcet [Sensipar] 90 mg PO QDAY 09/11/16 03/11/17 03/09/17 History Cyclobenzaprine [Flexeril 10 MG 10 mg PO TID PRN #90 tablet 01/27/17 03/11/17 Rx TAB] Lisinopril [Zestril TAB] 5 mg PO QDAY #50 tablet 01/27/17 03/11/17 03/10/17 Rx Metoprolol Succinate 25 mg PO DAILY #30 tab.er.24h 01/27/17 03/11/17 03/10/17 07 :45 Rx Tizanidine HCl [Zanaflex] 4 mg PO QHS #30 capsule 01/27/17 03/11/17 03/10/17 Rx predniSONE [Deltasone] 20 mg PO QDAY #30 tablet 01/27/17 03/11/17 03/10/17 Rx HYDROmorphone [Dilaudid] 1 mg PO Q4HR #20 tablet 03/10/17 03/11/17 Unknown Rx traMADol [Ultram 50 MG tab] 50 mg PO Q12HR PRN #30 tablet 03/10/17 03/11/1707/16 Rx Diphenhydramine HCl [Sleep Tabs 25 mg PO DAILY PRN 03/11/17 03/11/17 03/09/17 History 25MG] Exam - Constitutional Vitals: Temp Pulse Resp BP Pulse Ox 98.1 F 18 93/57 100 03/11/17 12:44 03/11/17 14:33 03/11/17 18:00 03/11/17 14:33 General appearance: Present: no acute distress, well-nourished - EENT Eyes: Present: PERRL ENT: hearing intact, clear oral mucosa - Neck Neck: Present: supple, normal ROM - Respiratory Respiratory effort: normal Respiratory: bilateral: CTA - Cardiovascular Heart rate: 70 Rhythm: regular Heart Sounds: Present: S1 & S2. Absent: rub, click - Extremities Extremities: pulses symmetrical, No edema, abnormal (No thrill felt in L arm/ forearm) Peripheral Pulses: within normal limits - Abdominal General gastrointestinal: Present: soft, non-tender, non-distended, normal bowel sounds Female genitourinary: Present: normal - Integumentary Integumentary: Present: clear, warm, dry - Musculoskeletal Musculoskeletal: gait normal, strength equal bilaterally - Psychiatric Psychiatric: appropriate mood/affect, intact judgment & insight - Neurologic Neurologic: CNII-XII intact, moves all extremities Results - Labs CBC & Chem 7: 03/11/17 13:11 03/11/17 13:11 Labs: Laboratory Last Values WBC 3.4 K/mm3 (4.5-11.0) L 03/11/17 13:11 RBC 3.01 M/mm3 (3.65-5.03) L 03/11/17 13:11 Hgb 9.6 gm/dl (10.1-14.3) L 03/11/17 13:11 Hct 29.7 % (30.3-42.9) L 03/11/17 13:11 MCV 99 fl (79-97) H 03/11/17 13:11 MCH 32 pg (28-32) 03/11/17 13:11 MCHC 32 % (30-34) 03/11/17 13:11 RDW 19.9 % (13.2-15.2) H 03/11/17 13:11 Plt Count 73 K/mm3 (140-440) L 03/11/17 13:11 Lymph % (Auto) 32.4 % (13.4-35.0) 03/11/17 13:11 Jack % (Auto) 12.8 % (0.0-7.3) H 03/11/17 13:11 Eos % (Auto) 0.2 % (0.0-4.3) 03/11/17 13:11 Baso % (Auto) 0.2 % (0.0-1.8) 03/11/17 13:11 Lymph # 1.1 K/mm3 (1.2-5.4) L 03/11/17 13:11 Jack # 0.4 K/mm3 (0.0-0.8) 03/11/17 13:11 Eos # 0.0 K/mm3 (0.0-0.4) 03/11/17 13:11 Baso # 0.0 K/mm3 (0.0-0.1) 03/11/17 13:11 Seg Neutrophils % 54.4 % (40.0-70.0) 03/11/17 13:11 Seg Neutrophils # 1.8 K/mm3 (1.8-7.7) 03/11/17 13:11 PT 14.4 Sec. (12.2-14.9) 03/11/17 13:11 INR 1.13 (0.87-1.13) 03/11/17 13:11 APTT 50.5 Sec. (24.2-36.6) H 03/11/17 13:11 Sodium 134 mmol/L (137-145) L 03/11/17 13:11 Potassium 4.0 mmol/L (3.6-5.0) D 03/11/17 13:11 Chloride 95.3 mmol/L (98-107) L 03/11/17 13:11 Carbon Dioxide 29 mmol/L (22-30) D 03/11/17 13:11 Anion Gap 14 mmol/L 03/11/17 13:11 BUN 36 mg/dL (7-17) H 03/11/17 13:11 Creatinine 9.4 mg/dL (0.7-1.2) H 03/11/17 13:11 Estimated GFR 6 ml/min 03/11/17 13:11 BUN/Creatinine Ratio 3.82 % 03/11/17 13:11 Glucose 110 mg/dL (65-100) H 03/11/17 13:11 Lactic Acid 1.90 mmol/L (0.7-2.0) 03/11/17 13:13 Calcium 8.3 mg/dL (8.4-10.2) L 03/11/17 13:11 Phosphorus 3.90 mg/dL (2.5-4.5) 03/11/17 13:11 Total Bilirubin 0.20 mg/dL (0.1-1.2) 03/11/17 13:11 Direct Bilirubin < 0.2 mg/dL (0-0.2) 03/11/17 13:11 Indirect Bilirubin 0.0 mg/dL 03/11/17 13:11 AST 12 units/L (5-40) 03/11/17 13:11 ALT < 5 units/L (7-56) L 03/11/17 13:11 Alkaline Phosphatase 78 units/L (35-129) 03/11/17 13:11 NT-Pro-B Natriuret Pep 7294 pg/mL (0-450) H 03/11/17 13:11 Total Protein 7.1 g/dL (6.3-8.2) 03/11/17 13:11 Albumin 3.7 g/dL (3.9-5) L 03/11/17 13:11 Albumin/Globulin Ratio 1.1 % 03/11/17 13:11 Blood Type A POSITIVE 03/11/17 13:11 Antibody Screen TNR 03/11/17 13:11 MICHOACANO Antibody Screen Negative 03/11/17 13:11 - Imaging and Cardiology EKG: report reviewed Assessment and Plan Advance Directives: Yes (Full code) VTE prophylaxis?: Chemical Plan of care discussed with patient/family: Yes - Patient Problems (1) Clotted dialysis shunt Current Visit: Yes Status: Acute Qualifiers: Encounter type: initial encounter Qualified Code(s): T82.868A - Thrombosis due to vascular prosthetic devices, implants and grafts, initial encounter Plan to address problem: Per Vascular surgery-Lack of thrill maybe sec to hypotension and collapsed vessels.Will give IV fluids to bring Bp up.BP now 91/54.Vascular surgery to reevaluate. (2) HTN (hypertension) Current Visit: No Status: Chronic Qualifiers: Hypertension type: essential hypertension Qualified Code(s): I10 - Essential (primary) hypertension Plan to address problem: Will hold metoprolol for time beingand also Lisinopril (3) ESRD (end stage renal disease) on dialysis Current Visit: Yes Status: Chronic Plan to address problem: Cont HD.Nephrology consulted (4) SLE (systemic lupus erythematosus) Current Visit: No Status: Chronic Qualifiers: Systemic lupus erythematosus type: unspecified Systemic lupus erythematosus organ involvement: pericarditis Qualified Code(s): M32.12 - Pericarditis in systemic lupus erythematosus Plan to address problem: Cont prednisone (5) DVT prophylaxis Current Visit: No Status: Acute Plan to address problem: Cont Heparin SQ (6) Discharge planning issues Current Visit: No Status: Acute Plan to address problem: Probable discharge in 24 to 48 hours once cleared by vascular surgery
[2017-03-11] MEDS ORDERED: FLEXERIL PO PRN (19:50)
[2017-03-11] MEDS ORDERED: DIPHENHYDRAMINE HCL 25 MG PO PRN (19:50)
[2017-03-11] MEDS ORDERED: ULTRAM PO PRN (19:50)
[2017-03-11] MEDS ORDERED: DULCOLAX PR PRN (19:57)
[2017-03-11] MEDS ORDERED: TYLENOL PO PRN (19:57)
[2017-03-11] MEDS ORDERED: ZOFRAN IV PRN (19:57)
[2017-03-11] MEDS ORDERED: MILK OF MAGNESIA PO PRN (19:57)
[2017-03-11] MEDS ORDERED: DILAUDID IV PRN (19:59)
[2017-03-11] MEDS ORDERED: AMBIEN PO PRN (19:59)
[2017-03-11] MEDS ORDERED: D5NS 1,000 ML IV SCH (20:00)
[2017-03-11] MEDS ORDERED: TOPROL XL PO SCH (20:00)
[2017-03-11] MEDS ORDERED: ZESTRIL PO SCH (20:00)
[2017-03-11] MEDS ORDERED: BENADRYL PO PRN (20:22)
[2017-03-11] MEDS ORDERED: ULTRAM ONE (20:27)
[2017-03-11] MEDS ORDERED: BENADRYL PO ONE (20:28)
[2017-03-11] MEDS: DILAUDID PO SCH ×2 (22:00→22:05)
[2017-03-11] MEDS ORDERED: NON-FORMULARY (Tizanidine Hcl [Zanaflex] 4 MG) PO SCH (22:00)
[2017-03-11] MEDS: ZANAFLEX PO SCH (23:45)
[2017-03-11] MEDS: SENSIPAR PO SCH (23:45)
[2017-03-11] MEDS: HEPARIN SUB-Q SCH (23:46)
[2017-03-12] MEDS: DILAUDID PO SCH ×6 (06:33→22:41)
[2017-03-12 07:57] LABS: Basophils % (Auto) 0.3 % (0.0-1.8); Eosinophils % (Auto) 0.2 % (0.0-4.3); Hematocrit 26.5 % (30.3-42.9); Hemoglobin 8.2 gm/dl (10.1-14.3); Mean Corpuscular HGB Conc 31 % (30-34); Mean Corpuscular Hemoglobin 31 pg (28-32); Mean Corpuscular Volume 100 fl (79-97); Red Blood Count 2.66 M/mm3 (3.65-5.03); Red Cell Distribution Width 19.2 % (13.2-15.2); White Blood Count 2.9 K/mm3 (4.5-11.0)
[2017-03-12 08:03] LABS: Albumin 3.4 g/dL (3.9-5); Albumin/Globulin Ratio 1.1 %; Alkaline Phosphatase 68 units/L (35-129); BUN/Creatinine Ratio 3.44; Blood Urea Nitrogen 40 mg/dL (7-17); Calcium 7.4 mg/dL (8.4-10.2); Carbon Dioxide 22 mmol/L (22-30); Chloride 96.5 mmol/L (98-107); Glucose 80 mg/dL (65-100); Potassium 5.7 mmol/L (3.6-5.0); Sodium 134 mmol/L (137-145); Total Protein 6.4 g/dL (6.3-8.2)
[2017-03-12 08:05] LABS: Platelet Count 67 K/mm3 (140-440)
[2017-03-12 08:17] LABS: Alanine Aminotransferase < 5 units/L (7-56); Anion Gap 21 mmol/L
[2017-03-12] MEDS ORDERED: NACL 0.9% 500 ML 500 ML IV ONE (10:13)
[2017-03-12] MEDS: SENSIPAR PO SCH (11:16)
[2017-03-12] MEDS: DELTASONE PO SCH (11:17)
[2017-03-12] MEDS: HEPARIN SUB-Q SCH (11:18)
--- NOTE | 2017-03-12 11:56 | Vascular Lab Report ---
FISTULA DUPLEX EXAM: REASON FOR EXAM: AVF malfunction with ESRD. NOTE: THE FISTULA IS LOCATED IN THE LEFT UPPER EXTREMITY. COMMENTS ON THE FISTULA: This is a brachial artery inflow to axillary vein outlflow graft. Morphologicaly, there is no large pseudoaneurysms. There is no flow in the graft. COMMENTS ON THE INFLOW: The inflow velocity is 0 cm/s which is abnormal. The brachial artery is 55 cm/s which is adequate. COMMENTS ON THE OUTFLOW: The venous outflow is zero which is abnormal. The volume is zero mL/min which is abnormal. IMPRESSION: Occluded left upper extremity AV graft
[2017-03-12] MEDS ORDERED: NACL 0.9% 100 ML IV PRN (12:30)
--- NOTE | 2017-03-12 12:31 | Consultation ---
History of Present Illness - Reason for Consult Consult date: 03/12/17 end stage renal disease, hyperkalemia, metabolic acidosis Requesting physician: PREETHI HANDLEY - History of Present Illness Patient states that she had partial dialysis today utilizing her groin fistula. Yesterday she had a fistula placed in her left upper extremity. She states that during dialysis she experienced severe pain in her left antecubital area and her left arm distally. She did not complain of any distal weakness or numbness. She stated that she did feel like her arm was cool and that the color of the fistulous site appeared somewhat darker. There is some report that her arm may have been bluish for the charge nurse. At the time of my preliminary examination, she was in the hallway and her arm was not cyanotic. It was somewhat cool from the antecubital area distally in comparison to the right arm. The fistula site was intact but slightly ecchymotic. I could not appreciate a thrill. The patient had hit this seizure and was extremely difficult to examine. Past History Past Medical History: anemia, dialysis, hypertension, hyperlipidemia, renal failure, other (Lupus) Past Surgical History: Other (multiple previous access procedures. The dialysis catheter placement. Ruptured ovarian cyst) Social history: denies: prescription drug abuse, IV drug use Family history: hypertension Medications and Allergies Allergies Allergy/AdvReac Type Severity Reaction Status Date / Time acetaminophen [From Percocet] Allergy Hives Verified 06/20/15 11:08 hydromorphone HCl Allergy Hives Verified 03/10/17 10:51 [From Dilaudid] nifedipine [From Procardia] Allergy Hives Verified 06/20/15 11:08 Penicillins Allergy Hives Verified 06/20/15 11:08 Sulfa (Sulfonamide Allergy Hives Verified 06/20/15 11:08 Antibiotics) oxycodone HCl [From Percocet] AdvReac Hives Verified 03/10/17 10:52 mayonnaise Allergy Unknown Uncoded 06/20/15 11:08 Home Medications Medication Instructions Recorded Confirmed Last Taken Type Cinacalcet [Sensipar] 90 mg PO QDAY 09/11/16 03/11/17 03/09/17 History Cyclobenzaprine [Flexeril 10 MG 10 mg PO TID PRN #90 tablet 01/27/17 03/11/17 Rx TAB] Lisinopril [Zestril TAB] 5 mg PO QDAY #50 tablet 01/27/17 03/11/17 03/10/17 Rx Metoprolol Succinate 25 mg PO DAILY #30 tab.er.24h 01/27/17 03/11/17 03/10/17 07 :45 Rx Tizanidine HCl [Zanaflex] 4 mg PO QHS #30 capsule 01/27/17 03/11/17 03/10/17 Rx predniSONE [Deltasone] 20 mg PO QDAY #30 tablet 01/27/17 03/11/17 03/10/17 Rx HYDROmorphone [Dilaudid] 1 mg PO Q4HR #20 tablet 03/10/17 03/11/17 Unknown Rx traMADol [Ultram 50 MG tab] 50 mg PO Q12HR PRN #30 tablet 03/10/17 03/11/1707/16 Rx Diphenhydramine HCl [Sleep Tabs 25 mg PO DAILY PRN 03/11/17 03/11/17 03/09/17 History 25MG] Active Meds: Active Medications Acetaminophen (Tylenol) 650 mg PO Q4H PRN PRN Reason: Pain MILD(1-3)/Fever >100.5/BATISTA Bisacodyl (Dulcolax) 10 mg DC QDAY PRN PRN Reason: Constipation unrelieved by MOM Cinacalcet (Sensipar) 90 mg PO QDAY [facility] Last Admin: 03/12/17 11:16 Dose: 90 mg Cyclobenzaprine HCl (Flexeril) 10 mg PO TID PRN PRN Reason: Muscle Spasm Diphenhydramine HCl (Benadryl) 25 mg PO QDAY PRN PRN Reason: ALLERGIC REACTION Last Admin: 03/11/17 20:32 Dose: 25 mg Heparin Sodium (Porcine) (Heparin) 5,000 unit SUB-Q Q12HR [facility] Last Admin: 03/12/17 11:18 Dose: 5,000 unit Hydromorphone HCl (Dilaudid) 1 mg PO Q4HR [facility] Last Admin: 03/12/17 11:34 Dose: Not Given Hydromorphone HCl (Dilaudid) 0.5 mg IV Q3H PRN PRN Reason: Pain , Severe (7-10) Sodium Chloride (Nacl 0.9%) 100 mls @ 999 mls/hr IV ARTUR PRN PRN Reason: Hypotension Magnesium Hydroxide (Milk Of Magnesia) 30 ml PO Q4H PRN PRN Reason: Constipation Miscellaneous Medication (Diphenhydramine Hcl [Sleep Tabs 25mg]) 25 mg PO DAILY PRN PRN Reason: Allergic Reaction Ondansetron HCl (Zofran) 4 mg IV Q8H PRN PRN Reason: N/V unrelieved by Reglan Prednisone (Deltasone) 20 mg PO QDAY [facility] Last Admin: 03/12/17 11:17 Dose: 20 mg Tizanidine HCl (Zanaflex) 4 mg PO QHS [facility]EY Last Admin: 03/11/17 23:45 Dose: 4 mg Tramadol HCl (Ultram) 50 mg PO Q12HR PRN PRN Reason: Pain Last Admin: 03/11/17 20:32 Dose: 50 mg Zolpidem Tartrate (Ambien) 5 mg PO QHS PRN PRN Reason: Insomnia Review of Systems Constitutional: fatigue, weakness, malaise Musculoskeletal: muscle weakness, muscle cramps, myalgias Exam - Vital Signs Vital signs: Vital Signs Temp Resp 98.1 F 18 03/11/17 12:44 03/11/17 12:44 - Physical Exam Narrative exam: - General Limitations: Other (anxiety and pain, limited exam) General appearance: alert, in no apparent distress - Head Head exam: Present: atraumatic, normocephalic - Eye Eye exam: Present: normal appearance. Absent: scleral icterus - ENT ENT exam: Present: mucous membranes moist - Neck Neck exam: Present: normal inspection - Respiratory Respiratory exam: Present: normal lung sounds bilaterally. Absent: respiratory distress - Cardiovascular Cardiovascular Exam: Present: regular rate, normal rhythm. Absent: systolic murmur, diastolic murmur, rubs, gallop - GI/Abdominal GI/Abdominal exam: Present: soft, normal bowel sounds. Absent: distended, tenderness, guarding, rebound - Extremities Exam Extremities exam: Present: other (left forearm is somewhat cool but it is not cyanotic. There is no thrill. There appears to be some fullness in the antecubital fossa. I do not feel a thrill.) - Back Exam Back exam: Present: normal inspection - Neurological Exam Neurological exam: Present: alert, oriented X3, CN II-XII intact, other (there is quite a bit of hypesthesia of the arm limiting examination). Absent: motor sensory deficit - Psychiatric Psychiatric exam: Present: anxious - Skin Skin exam: Present: ecchymosis, other (no signs of infection. Forearm is somewhat cool). Absent: rash Results - Lab Results 03/12/17 07:15 03/12/17 07:15 Most recent lab results Calcium 7.4 mg/dL (8.4-10.2) L 03/12/17 07:15 Phosphorus 3.90 mg/dL (2.5-4.5) 03/11/17 13:11 Assessment and Plan Impression: * ESRD * left arm pain * SLE * HTN * Anemia in ESRD * clotted av access * Hyperkalemia Plan: * dialysis today and in am * low k bath with hd * strict i/os * UF with HD as needed * daily lytes * vascular to assess av access
--- NOTE | 2017-03-12 12:54 | Progress Note ---
Assessment and Plan Pt is s/p attempted LUE avf which subsequently thrombosed. Suspect this was due to hypotension. She had a systolic BP in the 90's in PACU. She states she was previously hypertensive, but had been running in the 90's-100's since starting antihypertensives. She recently halved her dose of Lisinopril, but continues to be hypotensive. Post-op she c/o of intense pain from her left shoulder to her finger tips. This resulted in her presenting to the ER where she was subsequently admitted. A duplex confirms the fistula had thrombosed. A vascular surgery consult was placed due to a "cold painful hand and bleeding from her HD access". Pt was evaluated. Her left thigh avf had taken 30+ mins to stop bleeding by report, but was not bleeding at that time. This access is known to be failing, thus prompting attempted new avf creation. Her LUE incision was intact without erythema or active drainage. Physical findings were consistent with typical post-op presentation, except for severe diffuse arm pain. She had an easily palpable radial pulse, and her hand temp was consistent bilat. The pain did not appear to be a steal syndrome or typical post-surgical pain as it was not focus in her hand or at the incision site. Suspect this maybe a radiculopathy related to arm positioning during surgery, or a lupus pain crisis triggered by surgical intervention. Either way no surgical intervention warranted at this point. Asked to re-evaluate the pt this am. I spoke with the pt, and her daughter (via [employer]). We discussed her present condition. I expect this will be resolve with time. Recommend pain control for now. Consider adding renal/HD dose Neurontin to augment pain control. Discussed with the hospitalist. Pt is thrombocytopenic, appears chronic. Consider Hematology consult if not previously worked up. Pt will need new HD access once she has recovered from this. She will need improved BP control prior to surgical intervention. If she remains hypotensive, then any new access will be at great risk of thrombosis. Will see again as needed. - Patient Problems (1) Left upper limb pain Current Visit: Yes Status: Acute (2) Thrombosis of arteriovenous fistula Current Visit: Yes Status: Acute Qualifiers: Encounter type: initial encounter Qualified Code(s): T82.868A - Thrombosis due to vascular prosthetic devices, implants and grafts, initial encounter (3) ESRD (end stage renal disease) on dialysis Current Visit: Yes Status: Chronic (4) SLE (systemic lupus erythematosus) Current Visit: No Status: Chronic Qualifiers: Systemic lupus erythematosus type: unspecified Systemic lupus erythematosus organ involvement: pericarditis Qualified Code(s): M32.12 - Pericarditis in systemic lupus erythematosus Subjective Date of service: 03/12/17 Interval history: Pt c/o continued arm discomfort (sensitive to even light touch). No specific area, c/o pain from shoulder to finger tips. She also describes episodic periods of hand being cold and hot. Objective - Constitutional Vitals: Vital Signs - 12hr 03/12/17 08:00 Temperature 98.6 F Pulse Rate [ 81 Right From Monitor] Respiratory 18 Rate Blood Pressure 89/53 [Right Arm] O2 Sat by Pulse 99 Oximetry General appearance: Present: no acute distress - EENT Eyes: EOM intact ENT: hearing intact - Respiratory Respiratory effort: normal Extremities: no ischemia, pulses intact (easily palpable left radial pulse.), normal temperature, abnormal (guarding to even light touch or gentle manipulation. Incision intact with out erythema or drainage. 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0) mmol/L Chloride 96.5 L (98-107) mmol/L BUN 40 H (7-17) mg/dL Creatinine 11.6 H (0.7-1.2) mg/dL Calcium 7.4 L (8.4-10.2) mg/dL ALT < 5 L (7-56) units/L Albumin 3.4 L (3.9-5) g/dL
--- NOTE | 2017-03-12 14:02 | Progress Note ---
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 Hospitalist Physical - Physical exam Narrative exam: Patient is in distress from pain. The patient appeared well nourished and normally developed. Vital signs as documented. Head exam is unremarkable. No scleral icterus . Neck is without jugular venous distension, thyromegaly, or carotid bruits. Lungs are clear to auscultation. Cardiac exam reveals regular rate and Rhythm. Abdominal exam reveals normal bowel sounds, no masses, no organomegaly and no aortic enlargement. Extremities swelling and tenderness of the left arm, but pulses are full and easily palpable. DEGREASING SOLUTION MIXER: Alert and oriented 3. No focal weakness. - Constitutional Vitals: Temp Pulse Resp BP Pulse Ox 98.6 F 81 18 89/53 99 03/12/17 08:00 03/12/17 08:00 03/12/17 08:00 03/12/17 08:00 03/12/17 08:00 General appearance: Present: no acute distress Results - Labs CBC & Chem 7: 03/12/17 07:15 03/12/17 07:15 Labs: Laboratory Last Values WBC 2.9 K/mm3 (4.5-11.0) L 03/12/17 07:15 RBC 2.66 M/mm3 (3.65-5.03) L 03/12/17 07:15 Hgb 8.2 gm/dl (10.1-14.3) L 03/12/17 07:15 Hct 26.5 % (30.3-42.9) L 03/12/17 07:15 MCV 100 fl (79-97) H 03/12/17 07:15 MCH 31 pg (28-32) 03/12/17 07:15 MCHC 31 % (30-34) 03/12/17 07:15 RDW 19.2 % (13.2-15.2) H 03/12/17 07:15 Plt Count 67 K/mm3 (140-440) L 03/12/17 07:15 Lymph % (Auto) 33.1 % (13.4-35.0) 03/12/17 07:15 Beadle % (Auto) 13.3 % (0.0-7.3) H 03/12/17 07:15 Eos % (Auto) 0.2 % (0.0-4.3) 03/12/17 07:15 Baso % (Auto) 0.3 % (0.0-1.8) 03/12/17 07:15 Lymph # 1.0 K/mm3 (1.2-5.4) L 03/12/17 07:15 Beadle # 0.4 K/mm3 (0.0-0.8) 03/12/17 07:15 Eos # 0.0 K/mm3 (0.0-0.4) 03/12/17 07:15 Baso # 0.0 K/mm3 (0.0-0.1) 03/12/17 07:15 Seg Neutrophils % 53.1 % (40.0-70.0) 03/12/17 07:15 Seg Neutrophils # 1.6 K/mm3 (1.8-7.7) L 03/12/17 07:15 PT 14.4 Sec. (12.2-14.9) 03/11/17 13:11 INR 1.13 (0.87-1.13) 03/11/17 13:11 APTT 50.5 Sec. (24.2-36.6) H 03/11/17 13:11 Sodium 134 mmol/L (137-145) L 03/12/17 07:15 Potassium 5.7 mmol/L (3.6-5.0) H D 03/12/17 07:15 Chloride 96.5 mmol/L (98-107) L 03/12/17 07:15 Carbon Dioxide 22 mmol/L (22-30) D 03/12/17 07:15 Anion Gap 21 mmol/L 03/12/17 07:15 BUN 40 mg/dL (7-17) H 03/12/17 07:15 Creatinine 11.6 mg/dL (0.7-1.2) H 03/12/17 07:15 Estimated GFR 4 ml/min 03/12/17 07:15 BUN/Creatinine Ratio 3.44 % 03/12/17 07:15 Glucose 80 mg/dL (65-100) 03/12/17 07:15 Lactic Acid 1.90 mmol/L (0.7-2.0) 03/11/17 13:13 Calcium 7.4 mg/dL (8.4-10.2) L 03/12/17 07:15 Phosphorus 3.90 mg/dL (2.5-4.5) 03/11/17 13:11 Total Bilirubin 0.30 mg/dL (0.1-1.2) 03/12/17 07:15 Direct Bilirubin < 0.2 mg/dL (0-0.2) 03/11/17 13:11 Indirect Bilirubin 0.0 mg/dL 03/11/17 13:11 AST 10 units/L (5-40) 03/12/17 07:15 ALT < 5 units/L (7-56) L 03/12/17 07:15 Alkaline Phosphatase 68 units/L (35-129) 03/12/17 07:15 NT-Pro-B Natriuret Pep 7294 pg/mL (0-450) H 03/11/17 13:11 Total Protein 6.4 g/dL (6.3-8.2) 03/12/17 07:15 Albumin 3.4 g/dL (3.9-5) L 03/12/17 07:15 Albumin/Globulin Ratio 1.1 % 03/12/17 07:15 Blood Type A POSITIVE 03/11/17 13:11 Antibody Screen TNR 03/11/17 13:11 MICHOACANO Antibody Screen Negative 03/11/17 13:11
[2017-03-12] MEDS ORDERED: NACL 0.9 (PRIMING MACHINE ONLY DIALYSIS) MC ONE (16:39)
[2017-03-12] MEDS: ZANAFLEX PO SCH (22:30)
[2017-03-13] MEDS: DILAUDID PO SCH ×5 (02:00→17:44)
[2017-03-13] MEDS: HEPARIN SUB-Q SCH ×2 (04:42→10:22)
[2017-03-13 08:25] LABS: Hematocrit 25.8 % (30.3-42.9); Hemoglobin 8.2 gm/dl (10.1-14.3)
[2017-03-13 08:51] LABS: BUN/Creatinine Ratio 3.14; Calcium 7.3 mg/dL (8.4-10.2); Chloride 95.5 mmol/L (98-107); Potassium 4.2 mmol/L (3.6-5.0)
[2017-03-13] MEDS: SENSIPAR PO SCH (10:19)
[2017-03-13] MEDS: DELTASONE PO SCH (10:20)
--- NOTE | 2017-03-13 10:34 | Progress Note ---
Assessment and Plan Impression: * ESRD * left arm pain * SLE * HTN * Anemia in ESRD * clotted av access * Hyperkalemia Plan: * dialysis qTTHSAT * strict i/os * UF with HD as needed * daily lytes * vascular to assess av access Subjective Date of service: 03/13/17 Principal diagnosis: esrd Interval history: resting well in bed today, no acute events Objective - Exam Narrative Exam: - General Limitations: Other (anxiety and pain, limited exam) General appearance: alert, in no apparent distress - Head Head exam: Present: atraumatic, normocephalic - Eye Eye exam: Present: normal appearance. Absent: scleral icterus - ENT ENT exam: Present: mucous membranes moist - Neck Neck exam: Present: normal inspection - Respiratory Respiratory exam: Present: normal lung sounds bilaterally. Absent: respiratory distress - Cardiovascular Cardiovascular Exam: Present: regular rate, normal rhythm. Absent: systolic murmur, diastolic murmur, rubs, gallop - GI/Abdominal GI/Abdominal exam: Present: soft, normal bowel sounds. Absent: distended, tenderness, guarding, rebound - Extremities Exam Extremities exam: Present: other (left forearm is somewhat cool but it is not cyanotic. There is no thrill. There appears to be some fullness in the antecubital fossa. I do not feel a thrill.) - Back Exam Back exam: Present: normal inspection - Neurological Exam Neurological exam: Present: alert, oriented X3, CN II-XII intact, other (there is quite a bit of hypesthesia of the arm limiting examination). Absent: motor sensory deficit - Psychiatric Psychiatric exam: Present: anxious - Skin Skin exam: Present: ecchymosis, other (no signs of infection. Forearm is somewhat cool). Absent: rash - Vital Signs Vital signs: Vital Signs - 12hr 03/13/17 03/13/17 03/13/17 00:33 07:18 10:30 Temperature 98 F 97.9 F Pulse Rate [ 89 77 Right Radial] Respiratory 18 18 20 Rate Blood Pressure 85/49 101/58 [Right Arm] O2 Sat by Pulse 97 99 Oximetry - Lab 03/13/17 08:05 03/13/17 08:05 Most recent lab results Calcium 7.3 mg/dL (8.4-10.2) L 03/13/17 08:05 Phosphorus 3.90 mg/dL (2.5-4.5) 03/11/17 13:11
--- NOTE | 2017-03-13 10:49 | Discharge Summary ---
Providers - Providers Date of Admission: 03/11/17 19:57 Date of discharge: 03/13/17 Attending physician: LAZARA BECERRA MD Primary care physician: CAMP PROGRAM DIRECTOR Hospitalization Reason for admission: Left arm pain and swelling Condition: Stable Hospital course: Admission HPI: She came to ER waiting of left arm pain beginning from shoulder and radiating to the hand with numbness and tingling. She is postoperative day #1 after creation of left arm radiobasilic AV fistula. She did not notice any discharge from the incision site. She went to dialysis today via her left thigh access. Also after surgery she is been hypotensive to 90s-100s. ER ultrasound was performed and showed thrombosed left arm AV fistula. She admits to having lupus flareups after each surgical intervention. Patient had multiple previous failed dialysis accesses, including peritoneal dialysis. Patient was admitted to the floor and her abdomen arteries were particular good thrill to her hand flow, vision didn't have any limitation of movement of her hand. Patient was given pain medication and pain was controlled and discharged home with follow-up with vascular surgery as an outpatient. Patient' s medications were reviewed and updated at the time of discharge. Patient was hemodynamically stable at the time of discharge. Patient's questions and concerns were addressed at the bedside. Disposition: DC- TO HOME OR SELFCARE Time spent for discharge: 31 minutes - Discharge Diagnoses (1) Anemia Status: Acute Qualifiers: Anemia type: unspecified type Iron deficiency anemia type: I Vitamin B12 deficiency anemia type: V Folate deficiency anemia type: F Bone marrow failure anemia type: B Hemolytic anemia type: H Other causes of anemia: O Chronic kidney disease stage: C Qualified Code(s): D64.9 - Anemia, unspecified (2) Clotted dialysis shunt Status: Acute Qualifiers: Encounter type: initial encounter Qualified Code(s): T82.868A - Thrombosis due to vascular prosthetic devices, implants and grafts, initial encounter (3) End stage renal disease on dialysis Status: Acute (4) Left upper limb pain Status: Acute (5) Thrombocytopenia Status: Acute (6) Thrombosis of arteriovenous fistula Status: Acute Qualifiers: Encounter type: initial encounter Qualified Code(s): T82.868A - Thrombosis due to vascular prosthetic devices, implants and grafts, initial encounter (7) ESRD (end stage renal disease) on dialysis Status: Chronic Core Measure Documentation - Palliative Care Palliative Care/ Comfort Measures: Not Applicable - Core Measures Any of the following diagnoses?: none Exam - Physical Exam Narrative exam: Patient is in distress from pain. The patient appeared well nourished and normally developed. Vital signs as documented. Head exam is unremarkable. No scleral icterus . Neck is without jugular venous distension, thyromegaly, or carotid bruits. Lungs are clear to auscultation. Cardiac exam reveals regular rate and Rhythm. Abdominal exam reveals normal bowel sounds, no masses, no organomegaly and no aortic enlargement. Extremities swelling and tenderness of the left arm (decrease in size), but pulses are full and easily palpable, able to move her fingers. NURSERY SUPERVISOR: Alert and oriented 3. No focal weakness. - Constitutional Vitals: Temp Pulse Resp BP Pulse Ox 97.9 F 77 20 101/58 99 03/13/17 07:18 03/13/17 07:18 03/13/17 10:30 03/13/17 07:18 03/13/17 07:18 Plan Activity: no restrictions Weight Bearing Status: Full Weight Bearing Diet: renal Follow up with: PRIMARY MD AC [Primary Care Provider] - 3-5 Days Prescriptions: HYDROmorphone [Dilaudid] 1 mg PO Q4HR #20 tablet
[2017-03-13] MEDS ORDERED: NACL 0.9 (PRIMING MACHINE ONLY DIALYSIS) MC ONE (18:10)
[2017-03-13 20:54] VITALS: BP 120/70
== END 2017-03-13 21:30 | disposition home or self-care (01) | DRG 314 ==
LOC: ED 12:40 → 3A 19:57
PROVIDERS: ADMIT Internal Medicine; ATTEND Internal Medicine
PROC: 5A1D60Z (ICD-10-PCS; principal; 2017-03-12)
DX: T82.868A Thrombosis due to vascular prosthetic devices, implants and grafts, initial encounter (principal); N18.6 End stage renal disease; I13.2 Hypertensive heart and chronic kidney disease with heart failure and with stage 5 chronic kidney disease, or end stage renal disease; I95.9 Hypotension, unspecified; D69.6 Thrombocytopenia, unspecified; Y84.8 Other medical procedures as the cause of abnormal reaction of the patient, or of later complication, without mention of misadventure at the time of the procedure; I50.9 Heart failure, unspecified; M19.90 Unspecified osteoarthritis, unspecified site; M32.9 Systemic lupus erythematosus, unspecified; E78.5 Hyperlipidemia, unspecified; D63.1 Anemia in chronic kidney disease; E87.5 Hyperkalemia; Z88.0 Allergy status to penicillin; Z88.2 Allergy status to sulfonamides; Z88.5 Allergy status to narcotic agent; I25.2 Old myocardial infarction; Z82.49 Family history of ischemic heart disease and other diseases of the circulatory system
CPT/HCPCS: 36415; 71010; 80048; 80053; 80074; 82140; 83880; 84100; 84703; 85007; 85014; 85018; 85025; 85049; 85610; 85730; 86850; 86900; 86901; 93990; 96374; 96375; 96376; 99285; J0690; J1100; J1170; J1200; J1642; J1644; J2250; J2270; J2370; J2405; J2440; J2704; J2720; J3010; J7030; J7040; J7512

== ENCOUNTER 2017-05-29 10:04 | Emergency (ER) | payer MEDICARE ==
[2017-05-29 11:18] LABS: Albumin 3.7 g/dL (3.9-5); Albumin/Globulin Ratio 1.1 %; BUN/Creatinine Ratio 2.31; Bilirubin,Total 0.3 mg/dL (0.1-1.2); Calcium 9.3 mg/dL (8.4-10.2); Chloride 95.8 mmol/L (98-107); Potassium 4.2 mmol/L (3.6-5.0); Total Protein 7.2 g/dL (6.3-8.2)
[2017-05-29 11:26] LABS: Hematocrit 31.8 % (30.3-42.9); Hemoglobin 9.7 gm/dl (10.1-14.3); Mean Corpuscular HGB Conc 31 % (30-34); Mean Corpuscular Hemoglobin 28 pg (28-32); Mean Corpuscular Volume 92 fl (79-97); Platelet Count 105 K/mm3 (140-440); Red Blood Count 3.45 M/mm3 (3.65-5.03); Red Cell Distribution Width 19.2 % (13.2-15.2); White Blood Count 4.5 K/mm3 (4.5-11.0)
[2017-05-29 12:12] LABS: Anisocytosis 1+; Basophils % (Manual) 0 % (0.0-1.8); Blastocytes % (Manual) 0 %; Eosinophils % (Manual) 0 % (0.0-4.3); Macrocytosis 1+
[2017-05-29 12:13] LABS: Diff Status Complete; Platelet Estimate Consistent w Auto; Poikilocytosis Few
[2017-05-29 18:44] VITALS: BP 106/61
--- NOTE | 2017-05-29 20:28 | Emergency Department Report ---
ED General Adult HPI - General Chief complaint: Abdominal Pain Stated complaint: ABDOMINAL PAIN, VAGINAL BLEEDING Time Seen by Provider: 05/29/17 20:13 Source: patient Mode of arrival: Ambulatory Limitations: No Limitations - History of Present Illness Initial comments: A 42-year-old female with history of end-stage renal disease on peritoneal dialysis. Patient is here for evaluation of blood leaking from her peritoneal catheter. Patient has some mild discomfort on side of peritoneal catheter. No fever, no nausea no vomiting. -: Gradual (prominent ongoing for a few weeks now.) Location: abdomen Radiation: non-radiation Severity scale (0 -10): 4 Quality: aching Consistency: other (the problem only occurs when her dperitoneal dialysis cather is open.) Improves with: none Worsens with: none Associated Symptoms: cough. denies: confusion, chest pain, diaphoresis, fever/ chills, headaches, loss of appetite, malaise, nausea/vomiting, rash, seizure, shortness of breath, syncope, weakness - Related Data Home Medications Medication Instructions Recorded Confirmed Last Taken Cinacalcet [Sensipar] 90 mg PO QDAY 09/11/16 03/11/17 03/09/17 Diphenhydramine HCl [Sleep Tabs 25 mg PO DAILY PRN 03/11/17 03/11/17 03/09/17 25MG] Previous Rx's Medication Instructions Recorded Last Taken Type Cyclobenzaprine [Flexeril 10 MG 10 mg PO TID PRN #90 tablet 01/27/17 03/10/17 Rx TAB] Lisinopril [Zestril TAB] 5 mg PO QDAY #50 tablet 01/27/17 03/10/17 Rx Metoprolol Succinate 25 mg PO DAILY #30 tab.er.24h 01/27/17 03/10/17 07:45 Rx Tizanidine HCl [Zanaflex] 4 mg PO QHS #30 capsule 01/27/17 03/10/17 Rx predniSONE [Deltasone] 20 mg PO QDAY #30 tablet 01/27/17 03/10/17 Rx traMADol [Ultram 50 MG tab] 50 mg PO Q12HR PRN #30 tablet 03/10/17 03/09/17 Rx HYDROmorphone [Dilaudid] 1 mg PO Q4HR #20 tablet 07/15/17 Unknown Rx Allergies Allergy/AdvReac Type Severity Reaction Status Date / Time acetaminophen [From Percocet] Allergy Hives Verified 06/20/15 11:08 hydromorphone HCl Allergy Hives Verified 03/10/17 10:51 [From Dilaudid] nifedipine [From Procardia] Allergy Hives Verified 06/20/15 11:08 Penicillins Allergy Hives Verified 06/20/15 11:08 Sulfa (Sulfonamide Allergy Hives Verified 06/20/15 11:08 Antibiotics) oxycodone HCl [From Percocet] AdvReac Hives Verified 03/10/17 10:52 mayonnaise Allergy Unknown Uncoded 06/20/15 11:08 ED Review of Systems ROS: Stated complaint: ABDOMINAL PAIN, VAGINAL BLEEDING Other details as noted in HPI Comment: All other systems reviewed and negative Constitutional: denies: diaphoresis, malaise, weakness Eyes: denies: eye discharge, vision change ENT: denies: throat pain, dental pain, hearing loss Respiratory: denies: cough, orthopnea Cardiovascular: denies: chest pain, palpitations, dyspnea on exertion, edema, syncope, paroxysmal nocturnal dyspnea Endocrine: no symptoms reported. denies: flushing, intolerance to cold, intolerance to heat, unexplained weight gain, unexplained weight loss Gastrointestinal: abdominal pain. denies: nausea, vomiting, diarrhea, constipation, hematemesis, melena, hematochezia, other Genitourinary: denies: urgency, frequency, hematuria Musculoskeletal: denies: joint swelling, arthralgia Skin: denies: as per HPI, lesions, change in hair/nails Neurological: denies: weakness, numbness, paresthesias, confusion, abnormal gait , vertigo Psychiatric: denies: auditory hallucinations Hematological/Lymphatic: denies: easy bleeding, easy bruising ED Past Medical Hx - Past Medical History Previous Medical History?: Yes Hx Hypertension: Yes Hx Heart Attack/AMI: Yes Hx Congestive Heart Failure: No Hx Diabetes: No Hx Renal Disease: Yes (Peritoneal DIALYSIS, HD) Hx Arthritis: Yes Hx Seizures: Yes Hx Asthma: Yes Hx COPD: No Hx Dementia: No Additional medical history: sle lupus leaky valve - Surgical History Past Surgical History?: Yes Additional Surgical History: shunts, ports csection x 2 - Social History Smoking Status: Never Smoker Substance Use Type: Prescribed - Medications Home Medications: Home Medications Medication Instructions Recorded Confirmed Last Taken Type Cinacalcet [Sensipar] 90 mg PO QDAY 09/11/16 03/11/17 03/09/17 History Cyclobenzaprine [Flexeril 10 MG 10 mg PO TID PRN #90 tablet 01/27/17 03/11/17 Rx TAB] Lisinopril [Zestril TAB] 5 mg PO QDAY #50 tablet 01/27/17 03/11/17 03/10/17 Rx Metoprolol Succinate 25 mg PO DAILY #30 tab.er.24h 01/27/17 03/11/17 03/10/17 07 :45 Rx Tizanidine HCl [Zanaflex] 4 mg PO QHS #30 capsule 01/27/17 03/11/17 03/10/17 Rx predniSONE [Deltasone] 20 mg PO QDAY #30 tablet 01/27/17 03/11/17 03/10/17 Rx traMADol [Ultram 50 MG tab] 50 mg PO Q12HR PRN #30 tablet 03/10/17 03/11/1707/16 Rx Diphenhydramine HCl [Sleep Tabs 25 mg PO DAILY PRN 03/11/17 03/11/17 03/09/17 History 25MG] HYDROmorphone [Dilaudid] 1 mg PO Q4HR #20 tablet 03/13/17 Unknown Rx ED Physical Exam - General Limitations: No Limitations General appearance: alert, in no apparent distress - Head Head exam: Present: atraumatic, normocephalic - Eye Eye exam: Present: normal appearance, PERRL, EOMI. Absent: scleral icterus - ENT ENT exam: Present: normal exam, normal orophraynx, mucous membranes moist - Neck Neck exam: Present: normal inspection, full ROM. Absent: tenderness, lymphadenopathy - Respiratory Respiratory exam: Present: normal lung sounds bilaterally. Absent: respiratory distress, rhonchi, chest wall tenderness, accessory muscle use, decreased breath sounds - Cardiovascular Cardiovascular Exam: Present: regular rate, normal rhythm, normal heart sounds - GI/Abdominal GI/Abdominal exam: Present: soft, tenderness (around site of peritoneal dialysis catheter), normal bowel sounds. Absent: organomegaly - Rectal Rectal exam: Present: deferred - Extremities Exam Extremities exam: Present: normal inspection, full ROM, normal capillary refill - Back Exam Back exam: Present: normal inspection, full ROM. Absent: CVA tenderness (L) - Neurological Exam Neurological exam: Present: alert, oriented X3, CN II-XII intact, normal gait ED Course Vital Signs 05/29/17 05/29/17 10:20 18:43 Temperature 98.2 F Pulse Rate 96 H 87 Respiratory 18 16 Rate Blood Pressure 112/75 Blood Pressure 106/61 [Right] O2 Sat by Pulse 99 99 Oximetry ED Medical Decision Making - Lab Data Result diagrams: 05/29/17 10:44 05/29/17 10:44 Critical Care Time: No Critical care attestation.: If time is entered above; I have spent that time in minutes in the direct care of this critically ill patient, excluding procedure time. ED Disposition Clinical Impression: Peritoneal dialysis catheter dysfunction Disposition: - TO HOME OR SELFCARE Is pt being admited?: No Does the pt Need Aspirin: No Condition: Stable Instructions: Abdominal Pain (ED) Additional Instructions: Following practical nursing faculty on Wednesday. Return back to ER if her problem gets worse Referrals: JAKE JO MD [Primary Care Provider] - 3-5 Days
== END 2017-05-29 22:30 | disposition home or self-care (01) ==
LOC: ED 10:04
DX: T85.631A Leakage of intraperitoneal dialysis catheter, initial encounter (principal); I12.0 Hypertensive chronic kidney disease with stage 5 chronic kidney disease or end stage renal disease; N18.6 End stage renal disease; J45.909 Unspecified asthma, uncomplicated; R56.9 Unspecified convulsions; M19.90 Unspecified osteoarthritis, unspecified site; I25.2 Old myocardial infarction; Z88.2 Allergy status to sulfonamides; Z88.8 Allergy status to other drugs, medicaments and biological substances; Z88.0 Allergy status to penicillin
CPT/HCPCS: 36415; 80053; 83690; 85007; 85025; 86850; 86900; 86901; 99283

== ENCOUNTER 2017-09-03 07:26 | Day surgery (SDC) | payer MEDICARE ==
[~2017-09-03 07:26] MED LIST changes: -ANCEF/STERILE WATER 2 GM/20 ML 2 GM/20 ML SYRINGE IV NR; +CLEOCIN 600 MG/50 mL 600 MG/50 ML BAG IV NR; -NACL 0.9% 1000 ML 1,000 ML IV SCH
== END 2017-09-03 07:27 | disposition home or self-care (01) ==
LOC: CATHLABREC 07:26
PROVIDERS: ATTEND Surgery Vascular Surgery
DX: T82.898A Other specified complication of vascular prosthetic devices, implants and grafts, initial encounter (principal); N18.6 End stage renal disease; I73.9 Peripheral vascular disease, unspecified; F41.9 Anxiety disorder, unspecified; Z88.0 Allergy status to penicillin; Z88.8 Allergy status to other drugs, medicaments and biological substances; Z88.2 Allergy status to sulfonamides; Y83.2 Surgical operation with anastomosis, bypass or graft as the cause of abnormal reaction of the patient, or of later complication, without mention of misadventure at the time of the procedure; Z53.8 Procedure and treatment not carried out for other reasons